=== PATIENT | male | born 1935 | race Caucasian/White ===

== ENCOUNTER → 2016-05-28 | Outpatient (CLI) | payer MEDICARE ==
[~2016-05-28] MED LIST: /ESCI20TA OR; /ESOM40CA OR; /WARF5TA OR; AMBI10TA OR; AMIT50TA2 OR; ENOX40SY; HYDR25TA6 OR; LEVO2TA OR; LIPI20TA OR; LISI10TA4 OR; NEUR300C; NEUR300C OR; TRAM50TA2 OR; VICO5TAB OR; ZANA4CAP OR
--- NOTE | 2016-05-28 15:27 | REP ---
MRI LUMBAR SPINE WITHOUT CONTRAST: 05/28/2016. Comparison: 03/29/2012 MRI, x-ray 03/22/2016. Clinical history: Lumbar spondylosis, evaluate for progressive spinal stenosis. Technique: Sagittal T1, T2 and STIR images with axial T1 and T2 sequences lumbar spine provided. Findings. Vertebral body heights and marrow signal normal from T12 through the sacrum. The disc spaces are narrowed from L1-2 through L5-S1 with loss of disc water at all levels and at least narrowing at L5-S1. Conus terminates at the upper aspect of L1. T11-12 and T12-L1 levels show no disc bulge or disc herniation and no spinal or foraminal stenosis. At L1-2, there is minimal disc bulge without spinal or foraminal stenosis. At L2-3, there is a left paracentral disc bulge, ligamentum flavum and facet hypertrophy. There is crowding of nerve roots and the AP canal diameter 8.3 mm. No foraminal nerve root compression. At L3-L4, broad-based disc bulge with fairly extensive ligamentum and facet hypertrophy, which in combination causes severe spinal stenosis and nerve root crowding. The AP canal diameter is only 6.6 mm. Appearance slightly progressive. Lateral recess stenosis is noted. No definite nerve root compression, but loss of perineural fat around the L3 nerves is demonstrated. Only mild progression centrally. At L4-L5, there is a broad-based diffuse disc bulge with a small extruded disc right paracentral. This is unchanged. Ligamentum and facet hypertrophic changes seen causing moderately severe central canal stenosis. AP canal diameter about 6.2 mm. The foramina show no nerve root compression, although loss of perineural fat demonstrated. At L5, S1, there is a diffuse disc bulge which does not abut or displace the S1 nerve roots. Cross-sectional area of the canal was adequate. Facet hypertrophic changes noted. The foramina show loss of perineural fat with some compression of the right L5 nerve root while the left nerve root does not show foraminal compression. Impression: 1. Multilevel lumbar spondylosis with stenosis, mildly progressive centrally at L3-4 due to combined factors and with moderately severe stenosis at L4-5, less at L2-3 and L5-S1. Only foraminal stenosis with nerve root compression is on the right at L5-S1. The other foramina show loss of perineural fat without nerve root compression. Signed by Lito Dykes MD 05/28/2016 04:48 P
== END ==
LOC: M RAD 12:45
PROVIDERS: ATTEND Orthopaedic Surgery
DX: M47.816 Spondylosis without myelopathy or radiculopathy, lumbar region (principal); M47.817 Spondylosis without myelopathy or radiculopathy, lumbosacral region

== ENCOUNTER → 2016-09-01 | Outpatient (REF) | payer MEDICARE ==
[2016-09-01 12:22] LABS: ALBUMIN 3.6 GM/DL (3.2-5.2); ALBUMIN/GLOBULIN RATIO 1.09 (1.00-1.93); ALKALINE PHOSPHATASE 114 U/L (45-117); ALT/SGPT 36 U/L (12-78); ANION GAP 8 MEQ/L (8-16); AST/SGOT 25 U/L (15-37); BILIRUBIN,TOTAL 0.3 MG/DL (0.2-1.0); BLOOD UREA NITROGEN 15 MG/DL (7-18); CALCIUM LEVEL 8.8 MG/DL (8.8-10.2); CARBON DIOXIDE LEVEL 31 MEQ/L (21-32); CHLORIDE LEVEL 100 MEQ/L (98-107); CHOLESTEROL LEVEL 191 MG/DL (<200); CREATININE FOR GFR 0.82 MG/DL (0.70-1.30); GLOMERULAR FILTRATION RATE > 60.0 (>42); GLUCOSE, FASTING 104 MG/DL (83-110); SODIUM LEVEL 139 MEQ/L (136-145); TOTAL PROTEIN 6.9 GM/DL (6.4-8.2); TRIGLYCERIDES LEVEL 101 MG/DL (<150)
== END ==
LOC: M SFHCPLAZ 09:56
PROVIDERS: ATTEND Internal Medicine
DX: I10 Essential (primary) hypertension (principal); R73.01 Impaired fasting glucose; E78.00 Pure hypercholesterolemia, unspecified

== ENCOUNTER → 2016-09-29 | Outpatient (REF) | payer MEDICARE ==
[2016-09-29 12:29] LABS: INR 1.76
[2016-10-01 00:06] LABS: Lyme Disease IgG/IgM Antibodie <0.91 ISR (0.00-0.90); Lyme Disease IgM Ab Quantitati <0.80 index (0.00-0.79)
== END ==
LOC: M LABDRAW1 11:15
PROVIDERS: ATTEND Internal Medicine
DX: Z51.81 Encounter for therapeutic drug level monitoring (principal); Z79.899 Other long term (current) drug therapy; Z86.711 Personal history of pulmonary embolism

== ENCOUNTER → 2016-12-04 | Outpatient (CLI) | payer MEDICARE ==
[~2016-12-04] MED LIST changes: +AMBI10TA PO; +AMIT50TA PO; +COUM1TAB17 PO; +COUM2.5T17 PO; +CYMB60CA3 PO; +FLON1SPR; +HYDR-3713 PO; +HYDR25TAB PO; +LEVO175T2 PO; +MULT1TAB10 PO; +NEUR300C PO; +OMEP20CA3 PO; +PERC5TAB12 PO; +SIMV40TA2 PO; +TEMA15CA2 PO
[2016-12-04 16:26] LABS: ANION GAP 7 MEQ/L (8-16); BLOOD UREA NITROGEN 12 MG/DL (7-18); CALCIUM LEVEL 8.6 MG/DL (8.8-10.2); CARBON DIOXIDE LEVEL 31 MEQ/L (21-32); CHLORIDE LEVEL 102 MEQ/L (98-107); CREATININE FOR GFR 0.87 MG/DL (0.70-1.30); GLOMERULAR FILTRATION RATE > 60.0 (>42); GLUCOSE, FASTING 119 MG/DL (83-110); POTASSIUM SERUM 4.1 MEQ/L (3.5-5.1); SODIUM LEVEL 140 MEQ/L (136-145)
--- NOTE | 2016-12-04 16:47 | REP ---
Chest two views HISTORY: Preop Comparison: 03/25/2016 Linear density is present in the the right middle lobe consistent with scar. The left lung is clear. The heart is normal in size. The pulmonary vasculature is normal in appearance. Degenerative change is present in the thoracic spine. IMPRESSION: No acute disease. Signed by Hardy Castillo MD 12/04/2016 04:39 P
--- NOTE | 2016-12-04 21:50 | ECGEPIP ---
Stationary ECG Study [facility] Test Date: 2016-12-04 Pat Name: ISABEL GREY Department: Room: - Gender: M [employer] Developer: YARA : 1935 Requested By: Dony Duff Order Number: [id number] Reading MD: Vitor Cline Measurements Intervals [place] Rate: 65 P: 29 MD: 209 QRS: 21 QRSD: 87 T: 29 QT: 382 QTc: 399 Interpretive Statements SINUS RHYTHM LAST TRACING ON 03/25/2016 AT 10:01:36, NO SIGNIFICANT CHANGES Electronically Signed On 12-04-2016 21:50:30 EDT by Vitor Cline
== END ==
LOC: M LAB 14:26
PROVIDERS: ATTEND Orthopaedic Surgery
DX: Z01.818 Encounter for other preprocedural examination (principal); M99.73 Connective tissue and disc stenosis of intervertebral foramina of lumbar region; M43.16 Spondylolisthesis, lumbar region

== ENCOUNTER 2016-12-18 10:04 | Inpatient (IN) | payer MEDICARE ==
--- NOTE | 2016-12-12 11:06 | HPE ---
DATE OF ADMISSION: 12/18/2016 CHIEF COMPLAINT: Back pain, pain down both lower extremities. ATTENDING PHYSICIAN: Dr. Jean HISTORY: This is a pleasant, 81-year-old male patient with progressively worsening back pain and pain down to his lower extremities. It effects his activities of daily living. Both legs are quite problematic. He has increased symptoms pain if he walks any distance. He has elected for surgery for his continued symptoms. He has failed to improve with conservative management to include activity modification, rest, physical therapy. He consented for a right unilateral laminectomy L3, L4-L5 with posterior fusion in situ. He has had a MRI consistent with spinal stenosis most significantly at 3-4, lesser degree at 4-5 with lateral stenosis to the right at 4-5. There is degenerative changes at that 2-3 and at 5-1. X-rays notable for degenerative changes diffusely throughout the lumbar spine with a very minimal spondylolisthesis at 4-5. MEDICAL OPTIMIZATION: Dr. Baker. ALLERGIES: PENICILLIN. CURRENT MEDICATIONS: - gabapentin 300 mg one tablet three times a day - Prilosec 40 mg one tablet once per day - Coumadin 2.5 adjusted dosing - levothyroxine 175 mcg one tablet once per day - Flonase nasal spray - Zocor 40 mg one tablet in the evening - amitriptyline 50 mg one tablet at bedtime - Vicodin as needed for pain - Ambien 15 mg one tablet at bedtime as needed for insomnia - hydrochlorothiazide 25 mg one tablet once per day He knows to stop his warfarin 3 days prior to surgery he will stop that, 5 days prior to surgery no aspirin or anti-inflammatories. SURGICAL HISTORY: Includes bilateral open median nerve decompression, left open rotator cuff repair of his shoulder, right knee scope. MEDICAL HISTORY: Include hypertension, spinal stenosis, bilateral leg symptoms, impaired fasting glucose, history of a pulmonary embolism (PE) in 2004 that is treated with long-term anticoagulants, hypothyroidism, elevated cholesterol, insomnia, and seasonal allergies. FAMILY HISTORY: Noncontributory. SOCIAL HISTORY: He does not smoke. He does not use alcohol. He continues to perform some work-related activities. REVIEW OF SYSTEMS: Denies fever or chills. Denies chest pain, shortness breath or cough. Denies difficulty breathing. Denies nausea or vomiting. Denies chest pain. Denies recent upper respiratory infection (URI) or urinary tract infection (UTI) symptoms. Notes persistent pain in the back and currently in both lower extremities about equal left and right. Denies changes in bowel or bladder habits. EXAMINATION: Today reveals a well-nourished, well-developed, alert male patient who walks with a slow gait. He does not use assistive devices. Straight leg raise testing is negative. Exam of the back reveals skin to be intact. No erythema, edema or ecchymosis. Deep tendon reflexes are absent in knees and ankles. Neck is supple without adenopathy or jugular venous distention (JVD). Lungs are clear to auscultation without rales or wheeze. Heart: Regular rate and rhythm. Abdomen: Bowel sounds are present. Height 68 inches, weight 233 pounds. Temperature 97.7. LABORATORY DATA: Glucose 119. BUN 12, creatinine 0.87. Sodium 140, potassium 4.1. Hemoglobin 13.2. Chest x-ray: No acute cardiopulmonary process noted. EKG: Sinus rhythm. IMPRESSION: Symptomatic spinal stenosis, spondylolisthesis and bilateral leg symptoms. PLAN: He has consented for a right unilateral laminectomy L3, L4 and L5 with posterior fusion in situ by Dr. Jean. MAGNOLIA
[~2016-12-18] VITALS: Ht 177.8 cm; Wt 104.3 kg
[~2016-12-18 10:04] MED LIST changes: +LIDOCAINE 2% INJ 100 MG/5 ML SDV (FOR ANES.) As Ordered ONE; +MIDAZOLAM INJ 2 MG/2 ML VIAL (J2250) As Ordered ONE; -PERC5TAB12 PO; +PROPOFOL 200 MG/20 ML VIAL As Ordered ONE; +ROCURONIUM BROMIDE 50 MG/5 ML VIAL/SYRINGE As Ordered ONE; +VANCOMYCIN HCL 1,000 MG, VIAL MATE ADAPTER 1 EACH in D5W 250 ML IV ONE; +fentaNYL 250 MCG/5 ML INJECTION (J3010) As Ordered ONE
[2016-12-18] MEDS ORDERED: LR 1,000 ML IV SCH ×2 (10:15→19:15)
[2016-12-18] MEDS ORDERED: VANCOMYCIN 1000 MG/20 ML VIAL (J3370) As Ordered ONE (10:47)
[2016-12-18 10:49] LABS: INR 1.07
[2016-12-18] MEDS ORDERED: VANCOMYCIN HCL 1,000 MG, VIAL MATE ADAPTER 1 EACH in D5W 250 ML IV ONE (11:00)
[2016-12-18] MEDS ORDERED: PERCOCET 5MG/325MG TAB As Ordered ONE (12:15)
[2016-12-18] MEDS ORDERED: PERCOCET 5MG/325MG TAB PO ONE (13:00)
[2016-12-18] MEDS ORDERED: THROMBIN SOLN 20,000 UNITS KIT As Ordered ONE (13:32)
[2016-12-18] MEDS ORDERED: BUPIVACAINE/EPIN 0.25% 30 ML VIAL As Ordered ONE (13:32)
[2016-12-18] MEDS ORDERED: VANCOMYCIN HCL 500 MG/10 ML VIAL (J3370) As Ordered ONE (13:32)
[2016-12-18] MEDS ORDERED: BACITRACIN PWD 50,000 UNITS VIAL As Ordered ONE (13:32)
[2016-12-18] MEDS ORDERED: ROCURONIUM BROMIDE 50 MG/5 ML VIAL/SYRINGE As Ordered ONE (14:52)
[2016-12-18] MEDS ORDERED: MORPHINE 10 MG/ML 1ML VIAL As Ordered ONE (15:24)
[2016-12-18] MEDS ORDERED: NEOSTIGMINE 1MG/ML 5 ML SYRINGE (J2710) As Ordered ONE (15:27)
[2016-12-18] MEDS ORDERED: GLYCOPYRROLATE INJ 0.2 MG/ML 2 ML VIAL As Ordered ONE (15:27)
[2016-12-18] MEDS ORDERED: ONDANSETRON 4MG/2ML VIAL (J2405) As Ordered ONE (15:28)
--- NOTE | 2016-12-18 15:36 | REP ---
Lumbar spine: Single portable view. History: Spinal stenosis. Comparison radiographs March 22, 2016. Findings: A lateral portable view of the lumbar spine is presented time-stamped 03:26 p.m. This view shows a metallic intraoperative probe projecting on the dorsal aspect of the spinal canal at the level opposite the L3-4 disc. There is diffuse degenerative disc disease. Signed by Dimitri Newell MD 12/18/2016 04:26 P
[2016-12-18] MEDS ORDERED: MORPHINE 2 MG/ML 1ML SYRINGE As Ordered ONE ×2 (19:11→20:16)
[2016-12-18] MEDS ORDERED: ONDANSETRON 4MG/2ML VIAL (J2405) IV PRN ×2 (19:15→20:15)
[2016-12-18] MEDS ORDERED: fentaNYL 100 MCG/2 ML INJECTION (J3010) IV PRN (19:15)
[2016-12-18] MEDS: MORPHINE 2 MG/ML 1ML SYRINGE IV PRN ×5 (19:15→20:19)
[2016-12-18] MEDS ORDERED: MORPHINE 4 MG/ML 1ML SYRINGE IV PRN (20:15)
[2016-12-18] MEDS: PERCOCET 5MG/325MG TAB PO PRN (20:17)
[2016-12-18] MEDS ORDERED: ACETAMINOPHEN TAB 650MG DOSE (2X325MG) PO PRN (20:30)
[2016-12-18] MEDS ORDERED: MORPHINE 2 MG/ML 1ML SYRINGE IV PRN (20:30)
[2016-12-18] MEDS ORDERED: TEMAZEPAM 15 MG CAP PO PRN (20:30)
[2016-12-18] MEDS ORDERED: FLUTICASONE PROP 0.05% NASAL SPRAY 16 GM (FLONASE) PRN (20:45)
[2016-12-18 21:00] VITALS: BP 118/67
[2016-12-18] MEDS ORDERED: GABAPENTIN 400 MG CAP PO SCH (21:00)
[2016-12-18] MEDS ORDERED: D5W/0.45% SODIUM CHLORIDE 1,000 ML IV SCH (21:00)
[2016-12-18] MEDS ORDERED: AMITRIPTYLINE 50 MG TAB PO SCH (21:00)
[2016-12-18 21:30] VITALS: BP 130/63
[2016-12-18] MEDS: GABAPENTIN 300 MG CAP PO SCH (21:47)
[2016-12-18] MEDS: DOCUSATE SODIUM 100 MG CAP PO SCH (21:47)
[2016-12-18] MEDS: AMITRIPTYLINE 50 MG TAB PO SCH (21:47)
--- NOTE | 2016-12-18 21:56 | CR ---
DATE OF CONSULTATION: 12/18/2016 REASON FOR CONSULTATION: Medical management. CONSULTATION REPORT FOR: Dony Jean MD PRIMARY CARE PROVIDER (PCP): Jomar Baker MD HISTORY OF PRESENT ILLNESS: The patient is a 81-year-old man who has known spinal stenosis and back pain with lower extremity symptoms secondary to this. He did undergo a risk stratification preoperatively by Dr. Jomar Baker. He had been given a trial of rest, activity modification, and physical therapy without improvement in his symptoms and, as such, he has been taken for elective laminectomy with posterior fusion. Today, he is postoperative day #0. He is seen and examined in the postanesthesia care unit (PACU). He denies any pain at this time. He is comfortable. He denies chest pain, fevers, chills, nausea, vomiting, or diarrhea. PAST MEDICAL HISTORY: 1. Hypertension. 2. Pulmonary embolism (PE) in 2008, on Coumadin since. 3. Hypothyroidism. 4. Insomnia. 5. Dyslipidemia. 6. Gastroesophageal reflux disease. HOME MEDICATIONS: - gabapentin 900 mg three times a day - Prilosec 40 mg daily - Coumadin 2.5 mg daily, 5 mg on - levothyroxine 175 mcg daily - Flonase - Zocor 40 mg daily - amitriptyline 50 mg nightly - temazepam 15 mg nightly - hydrochlorothiazide 25 mg daily SOCIAL HISTORY: He denies alcohol, tobacco, or illicit drug use. ALLERGIES: PENICILLIN - rash. SURGICAL HISTORY: Bilateral medial nerve decompression surgery, left open rotator cuff shoulder repair, right knee scope, right eye cataract extraction, right neck mass excision. FAMILY HISTORY: Noncontributory. REVIEW OF SYSTEMS: Ten point completed and negative other than history of present illness (HPI). PHYSICAL EXAMINATION: VITAL SIGNS: Temperature 96.9, pulse 71, respiratory rate 16, blood pressure 135/65, oxygen saturation 100% on two liters nasal cannula. GENERAL: He is a very pleasant, obese, elderly, man laying on his right side. He is examined in the PACU. He does not appear to be in any acute distress. HEENT: Cranial nerves II-XII are grossly intact. He has a very large neck. Moist mucous membranes. CARDIOVASCULAR EXAM: S1, S2, regular. RESPIRATORY EXAM: Clear. ABDOMINAL EXAM: Obese. The dressing over his lumbar region is clean, dry, and intact. EXTREMITIES: No clubbing, cyanosis, or edema. LABORATORY STUDIES: His INR from today is 1.0. IMAGING: He had a lumbar spine x-ray from this afternoon that revealed metallic intraoperative probe projecting on the dorsal aspect of the spinal canal at the level opposite the L3-4 disc. Diffuse degenerative disc disease. ASSESSMENT AND PLAN: This is a 81-year-old man postoperative day #0 for a laminectomy for spinal stenosis. 1. Postoperative day #0 for laminectomy. Deep venous thrombosis (DVT) prophylaxis, physical therapy, postsurgical care as per orthopedic surgery. 2. History of pulmonary embolus (PE). He is normally on anticoagulation. His Coumadin has been held. His INR is subtherapeutic. Recommend restarting Coumadin at his home dose when okay with orthopaedics after lumbar surgery. 3. Hypertension. We will hold his hydrochlorothiazide today as he is receiving anesthesia and significant pain medication. Consider resuming as needed tomorrow. 4. Insomnia. We are holding his temazepam this evening and will order for nightly as needed starting tomorrow evening. 5. Chronic pain. Pain medication as per orthopedic surgery. He is on amitriptyline and gabapentin chronically. These are being continued by orthopedic surgery. 6. Gastroesophageal reflux disease. Continue with Prilosec. 7. Hypothyroidism. Continue with levothyroxine. 8. Seasonal allergies. Continue with Flonase. 9. Dyslipidemia. Continue with Zocor. 10. Deep venous thrombosis (DVT) prophylaxis. As per orthopedic surgery. Thank you for involving us in this interesting patient's case. We will continue to follow along with you. The patient will be followed by Dr. Villarreal on the hospitalist service. Please call with any specific questions.
[2016-12-18 22:30] VITALS: BP 107/58
[2016-12-18 23:30] VITALS: BP 110/60
[2016-12-19] MEDS ORDERED: CALCIUM CARBONATE 500 MG CHEW U/D PO PRN (01:00)
[2016-12-19 02:00] VITALS: BP 109/57
[2016-12-19] MEDS ORDERED: VANCOMYCIN HCL 1,000 MG, VIAL MATE ADAPTER 1 EACH in D5W 250 ML IV ONE (05:00)
[2016-12-19] MEDS: LEVOTHYROXINE 75MCG TABLET (0.075MG) PO SCH (05:46)
[2016-12-19] MEDS: LEVOTHYROXINE 100MCG TABLET (0.1MG) PO SCH (05:46)
[2016-12-19 06:00] VITALS: BP 140/60
[2016-12-19] MEDS: PERCOCET 5MG/325MG TAB PO PRN ×4 (06:11→18:53)
[2016-12-19 06:49] LABS: ANION GAP 7 MEQ/L (8-16); BLOOD UREA NITROGEN 10 MG/DL (7-18); CALCIUM LEVEL 8.1 MG/DL (8.8-10.2); CARBON DIOXIDE LEVEL 30 MEQ/L (21-32); CHLORIDE LEVEL 105 MEQ/L (98-107); CREATININE FOR GFR 0.76 MG/DL (0.70-1.30); GLOMERULAR FILTRATION RATE > 60.0 (>42); GLUCOSE, FASTING 103 MG/DL (83-110); MAGNESIUM LEVEL 1.7 MG/DL (1.8-2.4); POTASSIUM SERUM 4.1 MEQ/L (3.5-5.1); SODIUM LEVEL 142 MEQ/L (136-145)
[2016-12-19] MEDS: DOCUSATE SODIUM 100 MG CAP PO SCH ×2 (08:14→21:10)
[2016-12-19] MEDS: MULTIVITAMINS/MINERALS THERAP 1 TAB PO SCH (08:14)
[2016-12-19] MEDS: GABAPENTIN 300 MG CAP PO SCH ×3 (08:14→21:10)
[2016-12-19] MEDS: OMEPRAZOLE 20 MG CAP PO SCH (08:14)
[2016-12-19] MEDS: hydroCHLOROthiazide 25 MG TAB PO SCH (08:15)
[2016-12-19] MEDS: SIMVASTATIN 40 MG TAB PO SCH (08:15)
[2016-12-19] MEDS ORDERED: MOM 30ML SUSPENSION UDC PO PRN (08:15)
[2016-12-19] MEDS ORDERED: MAG SULF 1GM/100ML (MAG RUN) 1 GM in APPROPRIATE DILUENT 1 EA IV ONE (08:15)
[2016-12-19] MEDS: DULoxetine 30 MG CAP (CYMBALTA) PO SCH (08:15)
[2016-12-19] MEDS ORDERED: OMEPRAZOLE 20 MG CAP PO SCH (09:00)
[2016-12-19] MEDS ORDERED: SENOKOT S TAB PO SCH (09:00)
[2016-12-19] MEDS ORDERED: SIMVASTATIN 40 MG TAB PO SCH (09:00)
[2016-12-19] MEDS: MAGNESIUM OXIDE 400 MG TAB (MAG-OX) PO SCH ×2 (09:48→21:10)
[2016-12-19] MEDS: MIRALAX *UNIT DOSE* 17GM PACKET PO SCH (09:48)
--- NOTE | 2016-12-19 10:12 | IPNPDOC ---
Subjective Date Seen The patient was seen on 12/19/16. Subjective Chief Complaint/HPI The patient is a 81-year-old male admitted with a reason for visit of Spinal Stenosis Lumbar. Events since last encounter patient complains of some soreness of the back at the site or surgery but not to bad. no nausea or vomiting , no chest pain or sob , no abdominal pain , nausea or vomiting or diarrhea. Objective Physical Examination General Exam: Positive: Alert, Cooperative, No Acute Distress Eye Exam: Positive: PERRLA, Conjunctiva & lids normal, EOMI, Negative: Sclera icteric ENT Exam: Positive: Atraumatic, Mucous membr. moist/pink, Pharynx Normal Neck Exam: Positive: Supple, Negative: JVD, thyromegaly Chest Exam: Positive: Clear to auscultation, Normal air movement Heart Exam: Positive: Rate Normal, Regular Rhythm, Normal S1, Normal S2, Negative: Murmurs, Rubs Abdomen Exam: Positive: Normal bowel sounds, Soft, Negative: Tenderness, Hepatospenomegaly Extremity Exam: Positive: Normal pulses, Negative: Clubbing, Cyanosis, Edema Skin Exam: Positive: Nl turgor and temperature, Negative: Rash, Breakdown Assessment /Plan Problems (1) Spinal stenosis Problem Text: s/p right unilateral laminectomy L3, L4-L5 with posterior fusion in situ on 12/18 surgery was uneventful. pain control and dvt prophylasix as per orthopedics. (2) History of pulmonary embolism Status: Chronic Problem Text: Had PE in 2008 continue to hold coumadin once cleared by surgery will start heparin gtt with coumadin bridging. (3) Obesity Status: Chronic (4) GERD (gastroesophageal reflux disease) Status: Chronic (5) Hyperlipidemia Status: Chronic (6) Hypertension Status: Chronic (7) Hypothyroid Status: Chronic Plan/VTE VTE Prophylaxis Ordered?: Yes VS, I&O, 24H, Fishbone Vital Signs/I&O Vital Signs Date Time Temp Pulse Resp B/P (MAP) Pulse Ox O2 Delivery O2 Flow Rate FiO2 12/19/16 09:49 18 12/19/16 06:41 Nasal Cannula 2.0 12/19/16 06:11 98 12/19/16 06:00 99.9 89 140/60 (86) I&O- Last 24 Hours up to 6 AM 12/19/16 05:59 Intake Total 2470 ml Output Total 600 ml Balance 1870 ml Laboratory Data 24H LABS Laboratory Tests 2 12/18/16 10:20: Prothrombin Time 14.0, Prothromb Time International Ratio 1.07 12/19/16 06:16: Anion Gap 7L, Glomerular Filtration Rate > 60.0, Blood Urea Nitrogen 10, Creatinine 0.76, Sodium Level 142, Potassium Level 4.1, Chloride Level 105, Carbon Dioxide Level 30, Calcium Level 8.1L, Magnesium Level 1.7L CBC/BMP Laboratory Tests 12/19/16 06:16 Calcium Level 8.1 L JACLYN SAMANIEGO MD Dec 19, 2016 10:12
[2016-12-19 14:00] VITALS: BP 147/66
[2016-12-19] MEDS ORDERED: TEMAZEPAM 15 MG CAP PO PRN (20:45)
[2016-12-19] MEDS: AMITRIPTYLINE 50 MG TAB PO SCH (21:10)
[2016-12-19 22:00] VITALS: BP 131/87
[2016-12-20] MEDS: PERCOCET 5MG/325MG TAB PO PRN ×3 (05:24→20:24)
[2016-12-20] MEDS: LEVOTHYROXINE 75MCG TABLET (0.075MG) PO SCH (05:32)
[2016-12-20] MEDS: LEVOTHYROXINE 100MCG TABLET (0.1MG) PO SCH (05:32)
[2016-12-20 06:00] VITALS: BP 141/66
[2016-12-20] MEDS: CYCLOBENZAPRINE 10 MG TAB PO PRN (08:14)
[2016-12-20 08:34] VITALS: BP 114/51
[2016-12-20] MEDS: MIRALAX *UNIT DOSE* 17GM PACKET PO SCH (09:16)
[2016-12-20] MEDS: OMEPRAZOLE 20 MG CAP PO SCH (09:16)
[2016-12-20] MEDS: SIMVASTATIN 40 MG TAB PO SCH (09:17)
[2016-12-20] MEDS: DULoxetine 30 MG CAP (CYMBALTA) PO SCH (09:17)
[2016-12-20] MEDS: GABAPENTIN 300 MG CAP PO SCH ×3 (09:17→20:23)
[2016-12-20] MEDS: hydroCHLOROthiazide 25 MG TAB PO SCH (09:17)
[2016-12-20] MEDS: MAGNESIUM OXIDE 400 MG TAB (MAG-OX) PO SCH ×2 (09:17→20:25)
[2016-12-20] MEDS: DOCUSATE SODIUM 100 MG CAP PO SCH ×2 (09:18→20:25)
[2016-12-20] MEDS: MULTIVITAMINS/MINERALS THERAP 1 TAB PO SCH (09:18)
--- NOTE | 2016-12-20 10:06 | IPNPDOC ---
Subjective Date Seen The patient was seen on 12/20/16. Subjective Chief Complaint/HPI The patient is a 81-year-old male admitted with a reason for visit of Spinal Stenosis Lumbar. Events since last encounter no complaints this morning, no nausea or vomiting, no chest pain , no sob, no cough or phlegm Objective Physical Examination General Exam: Positive: Alert, Cooperative, No Acute Distress Eye Exam: Positive: PERRLA, Conjunctiva & lids normal, EOMI, Negative: Sclera icteric ENT Exam: Positive: Atraumatic, Mucous membr. moist/pink, Pharynx Normal Neck Exam: Positive: Supple, Negative: JVD, thyromegaly Chest Exam: Positive: Clear to auscultation, Normal air movement Heart Exam: Positive: Rate Normal, Regular Rhythm, Normal S1, Normal S2, Negative: Murmurs, Rubs Abdomen Exam: Positive: Normal bowel sounds, Soft, Negative: Tenderness, Hepatospenomegaly Extremity Exam: Positive: Normal pulses, Negative: Clubbing, Cyanosis, Edema Skin Exam: Positive: Nl turgor and temperature, Negative: Rash, Breakdown Assessment /Plan Problems (1) Spinal stenosis Problem Text: s/p right unilateral laminectomy L3, L4-L5 with posterior fusion in situ on 12/18 surgery was uneventful. pain control and dvt prophylasix as per orthopedics. (2) History of pulmonary embolism Status: Chronic Problem Text: Had PE in 2008 continue to hold coumadin once cleared by surgery will start heparin gtt with coumadin bridging. will possibly start on 12/22/16 (3) Obesity Status: Chronic (4) GERD (gastroesophageal reflux disease) Status: Chronic (5) Hyperlipidemia Status: Chronic (6) Hypertension Status: Chronic (7) Hypothyroid Status: Chronic Plan/VTE VTE Prophylaxis Ordered?: Yes VS, I&O, 24H, Fishbone Vital Signs/I&O Vital Signs Date Time Temp Pulse Resp B/P (MAP) Pulse Ox O2 Delivery O2 Flow Rate FiO2 12/20/16 09:35 Room Air 12/20/16 08:34 98.5 84 18 114/51 (72) 95 12/19/16 14:00 2.0 I&O- Last 24 Hours up to 6 AM 12/20/16 06:00 Intake Total 1680 ml Output Total 630 ml Balance 1050 ml Laboratory Data 24H LABS Laboratory Tests 2 12/20/16 06:09: Magnesium Level 1.8 JACLYN SAMANIEGO MD Dec 20, 2016 10:06
[2016-12-20 14:00] VITALS: BP 139/81
[2016-12-20] MEDS: AMITRIPTYLINE 50 MG TAB PO SCH (20:25)
[2016-12-20 22:00] VITALS: BP 146/66
[2016-12-21] MEDS: LEVOTHYROXINE 75MCG TABLET (0.075MG) PO SCH (05:30)
[2016-12-21] MEDS: LEVOTHYROXINE 100MCG TABLET (0.1MG) PO SCH (05:30)
[2016-12-21] MEDS: PERCOCET 5MG/325MG TAB PO PRN ×3 (05:30→18:45)
[2016-12-21 06:00] VITALS: BP 137/65
[2016-12-21] MEDS ORDERED: MAGNESIUM CITRATE 300 ML BTL PO ONE (08:15)
--- NOTE | 2016-12-21 10:25 | IPNPDOC ---
Subjective Date Seen The patient was seen on 12/21/16. Subjective Chief Complaint/HPI The patient is a 81-year-old male admitted with a reason for visit of Spinal Stenosis Lumbar. Events since last encounter no complaints this morning, Objective Physical Examination General Exam: Positive: Alert, Cooperative, No Acute Distress Eye Exam: Positive: PERRLA, Conjunctiva & lids normal, EOMI, Negative: Sclera icteric ENT Exam: Positive: Atraumatic, Mucous membr. moist/pink, Pharynx Normal Neck Exam: Positive: Supple, Negative: JVD, thyromegaly Chest Exam: Positive: Clear to auscultation, Normal air movement Heart Exam: Positive: Rate Normal, Regular Rhythm, Normal S1, Normal S2, Negative: Murmurs, Rubs Abdomen Exam: Positive: Normal bowel sounds, Soft, Negative: Tenderness, Hepatospenomegaly Extremity Exam: Positive: Normal pulses, Negative: Clubbing, Cyanosis, Edema Skin Exam: Positive: Nl turgor and temperature, Negative: Rash, Breakdown Assessment /Plan Problems (1) Spinal stenosis Problem Text: s/p right unilateral laminectomy L3, L4-L5 with posterior fusion in situ on 12/18 surgery was uneventful. pain control and dvt prophylasix as per orthopedics. (2) History of pulmonary embolism Status: Chronic Problem Text: Had PE in 2008 continue to hold coumadin once cleared by surgery will start heparin gtt with coumadin bridging. will possibly start on 12/22/16 (3) Obesity Status: Chronic (4) GERD (gastroesophageal reflux disease) Status: Chronic (5) Hyperlipidemia Status: Chronic (6) Hypertension Status: Chronic (7) Hypothyroid Status: Chronic Plan/VTE VTE Prophylaxis Ordered?: Yes VS, I&O, 24H, Fishbone Vital Signs/I&O Vital Signs Date Time Temp Pulse Resp B/P (MAP) Pulse Ox O2 Delivery O2 Flow Rate FiO2 12/21/16 06:23 16 12/21/16 06:00 97.9 76 137/65 (89) 98 Room Air 12/19/16 14:00 2.0 I&O- Last 24 Hours up to 6 AM 12/21/16 05:59 Intake Total 1440 ml Output Total 300 ml Balance 1140 ml JACLYN SAMANIEGO MD Dec 21, 2016 10:25
[2016-12-21] MEDS: MIRALAX *UNIT DOSE* 17GM PACKET PO SCH (10:53)
[2016-12-21] MEDS: OMEPRAZOLE 20 MG CAP PO SCH (10:54)
[2016-12-21] MEDS: SIMVASTATIN 40 MG TAB PO SCH (10:54)
[2016-12-21] MEDS: CYCLOBENZAPRINE 10 MG TAB PO PRN (10:54)
[2016-12-21] MEDS: DOCUSATE SODIUM 100 MG CAP PO SCH ×2 (10:54→20:47)
[2016-12-21] MEDS: hydroCHLOROthiazide 25 MG TAB PO SCH (10:54)
[2016-12-21] MEDS: MULTIVITAMINS/MINERALS THERAP 1 TAB PO SCH (10:54)
[2016-12-21] MEDS: MAGNESIUM OXIDE 400 MG TAB (MAG-OX) PO SCH ×2 (10:55→20:47)
[2016-12-21] MEDS: DULoxetine 30 MG CAP (CYMBALTA) PO SCH (10:55)
[2016-12-21] MEDS: GABAPENTIN 300 MG CAP PO SCH ×3 (10:55→20:47)
[2016-12-21 14:00] VITALS: BP 122/70
--- NOTE | 2016-12-21 14:59 | RO ---
DATE OF PROCEDURE: 12/19/2016 PREPROCEDURE DIAGNOSES: Lumbar spinal stenosis with facet arthropathy and right lower extremity, more than left lower extremity radiculopathy. POSTOPERATIVE DIAGNOSES: Lumbar spinal stenosis with facet arthropathy and right lower extremity, more than left lower extremity radiculopathy. PROCEDURE PERFORMED: Right L3 unilateral laminectomy for decompression of the thecal sac and nerve roots, additional level L4, additional level L5, arthrodesis/intertransverse posterior fusion in situ of L3-4 and L4-5, harvest and placement of iliac crest bone graft for spine surgery. Also utilized was collection and placement of local autograft for spine surgery and donor allograft for spine surgery. SURGEON: Dony Jean MD AUTO DRIVER: Daryl Lund PA-C. ESTIMATED BLOOD LOSS: 450 mL, replaced crystalloid. COMPLICATIONS: No intraoperative complications. INDICATIONS: Progressive discomfort radiating into the leg and back pain. MRI evidence of severe spinal stenosis with facet arthropathy. Consent reviewed in detail with the patient, including horacio discussion of the pathology involved, procedure proposed, alternatives, including doing nothing and risks, including, but not limited to pain, failure, infection, bleeding blood loss, incomplete relief of symptoms, need for additional surgery, nerve injury, , blood clots and other issues. The patient agrees to proceed with surgery. DESCRIPTION OF PROCEDURE: Identified in the holding area. Site and side verified. Brought to the operating room. General endotracheal anesthesia was administered. He was positioned on the Singh frame for exposure of the lumbar spine. Once I and the seamer were comfortable with the patient's positioning on the Singh frame, he was sterilely prepped and draped in the usual fashion. Next, we began the surgical procedure. For most of the surgical procedure, I was stationed on the right side of the patient wearing loupe magnification and a head lamp; however, I did alternate sides. With the decompression portion of the procedure, I did utilize the operating microscope. Mr. Lund initially stood on the patient's left side. Next, the incision was outlined with a marking pen, infiltrated with 0.25% Marcaine with epinephrine and then made with the #10 blade knife. The incision, based on palpation of the patient's iliac crest. Dissection continued down the posterior lumbar fascia. Mr. Donahue seemed to have a significant component of his body habitus concentrated in the soft tissue superficial to the muscle layer on the lumbar spine. The lumbar fascia was encountered and I reflected posterior lumbar fascia off the spinous processes of L3, L4 and L5 to allow exposure of the L3, L4 and L5 levels. Next, I drilled a divot into the lamina of the L3 level and placed a Hoang-Oswald there and then we obtained a cross-table lateral x-ray to verify appropriate levels. Next, once this was accomplished, we continued dissection. We also utilized Carly retractors to dissect over the transverse processes of L3, L4 and L5 on the patient's right side. We also accomplished the dissection on the left side over the facet complexes but did not disturb all the paraspinals on that left side. Next, at this stage, my loupe magnification headlamp was removed and the operating microscope was brought in for additional portions of the procedure. Leksell was utilized to remove some portions of the hypertrophied facet osteophytes, as well as the posterior lamina. These fragments were retained for bone graft, and we all see utilized the Lukens trap on one of our suctions to evacuate bone burring fragments. These were retained and used as bone graft. Next, the high-speed bur was utilized to implement the right unilateral laminectomy at L4. This extended superiorly through L3, undercut the spinous process of L3, undercut the spinous process of L4, and undercut the spinous process of L5 so that there was a significant midline decompression from the bony perspective. This also allowed exposure of the ligamentum flavum across the midline and I did utilize at that point curved curettes and Kerrisons to remove ligamentum flavum, which seemed to be somewhat hemosiderin stained. The ligamentum flavum was clearly impinging quite significantly on the thecal sac at L3, L4 level, as well as that L4, L5 level. I particularly paid attention to the right facet at L4, L5 where there had been some facet hypertrophy impinging on the traversing nerve root and this was cleared. I did reach over the horizon at the L3, L4 level, as well as the L4, L5 level with #2 Kerrisons, as well as curettes to clear the lateral recess and decompress the lateral recess and traversing nerves on that side. Next, irrigation was accomplished. Hemostasis was controlled with bipolar cautery, as well as thrombin Gelfoam. Next, once the decompression was adequately accomplished, we then turned our attention to the patient's left iliac crest from which we obtained morselized autograft. This was through a separate fascial incision and this was irrigated and closed over dry Gelfoam. Next, once this was accomplished, we decorticated the transverse processes at L3, L4, L5 in the right and decorticated the facet complexes on the left side and interlaminar spaces. Next, we placed iliac crest graft between L3, L4 and L5 over transverse processes and again the facet complexes, as well as the local graft, which was bur millings mixed with demineralized bone matrix putty and allograft. Next, bone graft was placed in the contralateral side over the facet complexes in the interlaminar space. This was all done after irrigation. No active bleeding was appreciated, but the patient had a significant mild venous ooze and serous drainage through the procedure so therefore I did closed over a #7 flat drain. Deep dermis was approximated with interrupted stitch and nylon utilized on skin. Dressings applied. The patient moved to the hospital bed in the supine position, extubated, moved to the recovery room in good condition. For further details, please refer to medical record. Please note, Mr. Lund was present and participated in the entirety case, as did Jayy. Please note the decompression was accomplished using the operating microscope. Mr. Lund looked through the oculars on the left side and Jayy on the right.
[2016-12-21] MEDS: AMITRIPTYLINE 50 MG TAB PO SCH (20:47)
[2016-12-21 22:00] VITALS: BP 132/60
[2016-12-22] MEDS: LEVOTHYROXINE 75MCG TABLET (0.075MG) PO SCH (05:46)
[2016-12-22] MEDS: LEVOTHYROXINE 100MCG TABLET (0.1MG) PO SCH (05:46)
[2016-12-22 06:00] VITALS: BP 144/67
[2016-12-22 06:54] LABS: ANION GAP 5 MEQ/L (8-16); BLOOD UREA NITROGEN 13 MG/DL (7-18); CALCIUM LEVEL 8.8 MG/DL (8.8-10.2); CARBON DIOXIDE LEVEL 35 MEQ/L (21-32); CHLORIDE LEVEL 96 MEQ/L (98-107); CREATININE FOR GFR 0.71 MG/DL (0.70-1.30); GLOMERULAR FILTRATION RATE > 60.0 (>42); GLUCOSE, FASTING 113 MG/DL (83-110); POTASSIUM SERUM 3.5 MEQ/L (3.5-5.1); SODIUM LEVEL 136 MEQ/L (136-145)
[2016-12-22 06:57] LABS: BASO % 0.2 % (0.0-1.0); EOS # 0.2 K/mm3 (0.0-0.50); EOS % 1.9 % (0.0-3.0); INR 1.02; LARGE UNSTAINED CELL # 0.3 K/mm3 (0.0-0.4); LARGE UNSTAINED CELL % 4.1 % (0.0-4.0); LYMPH % 12.9 % (24.0-44.0); MEAN CORPUSCULAR HEMOGLOBIN 31.8 pg (27.0-33.0); MEAN CORPUSCULAR HGB CONC 35.3 g/dl (32.0-36.5); MEAN CORPUSCULAR VOLUME 90.1 fl (80.0-96.0); MONO # 0.5 K/mm3 (0.0-0.8); MONO % 6.5 % (0.0-5.0); NEUTROPHILS # 5.7 K/mm3 (1.8-7.7); NEUTROPHILS % 74.4 % (36.0-66.0); PLATELET COUNT, AUTOMATED 243 k/mm3 (150-450); RED CELL DISTRIBUTION WIDTH 12.8 % (11.5-14.5); WHITE BLOOD COUNT 7.6 K/mm3 (4.0-10.0)
[2016-12-22] MEDS: MIRALAX *UNIT DOSE* 17GM PACKET PO SCH (09:00)
[2016-12-22] MEDS: MAGNESIUM OXIDE 400 MG TAB (MAG-OX) PO SCH ×2 (09:54→21:19)
[2016-12-22] MEDS: DOCUSATE SODIUM 100 MG CAP PO SCH ×2 (09:54→21:19)
[2016-12-22] MEDS: GABAPENTIN 300 MG CAP PO SCH ×3 (09:54→21:19)
[2016-12-22] MEDS: OMEPRAZOLE 20 MG CAP PO SCH (09:54)
[2016-12-22] MEDS: hydroCHLOROthiazide 25 MG TAB PO SCH (09:54)
[2016-12-22] MEDS: DULoxetine 30 MG CAP (CYMBALTA) PO SCH (09:54)
[2016-12-22] MEDS: SIMVASTATIN 40 MG TAB PO SCH (09:54)
[2016-12-22] MEDS: MULTIVITAMINS/MINERALS THERAP 1 TAB PO SCH (09:54)
[2016-12-22] MEDS: PERCOCET 5MG/325MG TAB PO PRN ×2 (09:55→17:48)
[2016-12-22] MEDS: HEPARIN DRIP 25,000 UNITS in APPROPRIATE DILUENT 1 EA IV SCH (10:27)
--- NOTE | 2016-12-22 11:46 | IPNPDOC ---
Subjective Date Seen The patient was seen on 12/22/16. Subjective Chief Complaint/HPI The patient is a 81-year-old male admitted with a reason for visit of Spinal Stenosis Lumbar. Events since last encounter no complaints this morning . will start heparin and coumadin Objective Physical Examination General Exam: Positive: Alert, Cooperative, No Acute Distress Eye Exam: Positive: PERRLA, Conjunctiva & lids normal, EOMI, Negative: Sclera icteric ENT Exam: Positive: Atraumatic, Mucous membr. moist/pink, Pharynx Normal Neck Exam: Positive: Supple, Negative: JVD, thyromegaly Chest Exam: Positive: Clear to auscultation, Normal air movement Heart Exam: Positive: Rate Normal, Regular Rhythm, Normal S1, Normal S2, Negative: Murmurs, Rubs Abdomen Exam: Positive: Normal bowel sounds, Soft, Negative: Tenderness, Hepatospenomegaly Extremity Exam: Positive: Normal pulses, Negative: Clubbing, Cyanosis, Edema Skin Exam: Positive: Nl turgor and temperature, Negative: Rash, Breakdown Assessment /Plan Problems (1) Spinal stenosis Problem Text: s/p right unilateral laminectomy L3, L4-L5 with posterior fusion in situ on 12/18 surgery was uneventful. pain control and dvt prophylasix as per orthopedics. (2) History of pulmonary embolism Status: Chronic Problem Text: Had PE in 2008 , Had factor V leiden heterozygous. will start heparin gtt with coumadin bridging will try to keep PTT 1.5 to 2 times normal that is between 55 to 70 (3) Obesity Status: Chronic (4) GERD (gastroesophageal reflux disease) Status: Chronic (5) Hyperlipidemia Status: Chronic (6) Hypertension Status: Chronic (7) Hypothyroid Status: Chronic Plan/VTE VTE Prophylaxis Ordered?: Yes VS, I&O, 24H, Fishbone Vital Signs/I&O Vital Signs Date Time Temp Pulse Resp B/P (MAP) Pulse Ox O2 Delivery O2 Flow Rate FiO2 12/22/16 10:25 16 12/22/16 09:58 Room Air 12/22/16 06:00 99.1 79 144/67 (92) 95 12/19/16 14:00 2.0 I&O- Last 24 Hours up to 6 AM 12/22/16 06:00 Intake Total 1340 ml Output Total 550 ml Balance 790 ml Laboratory Data 24H LABS Laboratory Tests 2 12/22/16 06:25: White Blood Count 7.6, Red Blood Count 2.99L, Hemoglobin 9.5L, Hematocrit 27.0L , Mean Corpuscular Volume 90.1, Mean Corpuscular Hemoglobin 31.8, Mean Corpuscular Hemoglobin Concent 35.3, Red Cell Distribution Width 12.8, Platelet Count 243, Neutrophils (%) (Auto) 74.4H, Lymphocytes (%) (Auto) 12.9L, Monocytes (%) (Auto) 6.5H, Eosinophils (%) (Auto) 1.9, Basophils (%) (Auto) 0.2 , Neutrophils # (Auto) 5.7, Lymphocytes # (Auto) 1.0L, Monocytes # (Auto) 0.5, Eosinophils # (Auto) 0.2, Basophils # (Auto) 0.0, Large Unclassified Cells % 4.1H, Large Unclassified Cells # 0.3, Prothrombin Time 13.5, Prothromb Time International Ratio 1.02, Activated Partial Thromboplast Time 35.5, Anion Gap 5L , Glomerular Filtration Rate > 60.0, Blood Urea Nitrogen 13, Creatinine 0.71, Sodium Level 136, Potassium Level 3.5, Chloride Level 96L, Carbon Dioxide Level 35H, Calcium Level 8.8 CBC/BMP Laboratory Tests 12/22/16 06:25 Red Blood Count 2.99 L, Mean Corpuscular Volume 90.1, Mean Corpuscular Hemoglobin 31.8, Mean Corpuscular Hemoglobin Concent 35.3, Red Cell Distribution Width 12.8, Neutrophils (%) (Auto) 74.4 H, Lymphocytes (%) (Auto) 12.9 L, Monocytes (%) (Auto) 6.5 H, Eosinophils (%) (Auto) 1.9, Basophils (%) ( Auto) 0.2, Neutrophils # (Auto) 5.7, Lymphocytes # (Auto) 1.0 L, Monocytes # ( Auto) 0.5, Eosinophils # (Auto) 0.2, Basophils # (Auto) 0.0, Calcium Level 8.8 JACLYN SAMANIEGO MD Dec 22, 2016 11:46
[2016-12-22 14:00] VITALS: BP 138/74
[2016-12-22] MEDS: HEPARIN SOD (PORCINE) 5000 UNITS/ML VIAL IV PRN (17:44)
[2016-12-22] MEDS: WARFARIN SOD 5 MG TAB PO SCH (17:47)
[2016-12-22] MEDS: AMITRIPTYLINE 50 MG TAB PO SCH (21:20)
[2016-12-22 22:00] VITALS: BP 159/74
[2016-12-23] MEDS: CYCLOBENZAPRINE 10 MG TAB PO PRN (02:57)
[2016-12-23] MEDS: HEPARIN DRIP 25,000 UNITS in APPROPRIATE DILUENT 1 EA IV SCH (03:43)
[2016-12-23 06:00] VITALS: BP 135/70
[2016-12-23] MEDS: LEVOTHYROXINE 100MCG TABLET (0.1MG) PO SCH (06:02)
[2016-12-23] MEDS: LEVOTHYROXINE 75MCG TABLET (0.075MG) PO SCH (06:02)
[2016-12-23 07:02] LABS: BASO % 0.2 % (0.0-1.0); EOS # 0.2 K/mm3 (0.0-0.50); LARGE UNSTAINED CELL # 0.3 K/mm3 (0.0-0.4); LARGE UNSTAINED CELL % 4.1 % (0.0-4.0); LYMPH # 1.4 K/mm3 (1.5-4.5); LYMPH % 16.7 % (24.0-44.0); MEAN CORPUSCULAR HEMOGLOBIN 31.1 pg (27.0-33.0); MEAN CORPUSCULAR HGB CONC 33.6 g/dl (32.0-36.5); MEAN CORPUSCULAR VOLUME 92.6 fl (80.0-96.0); MONO # 0.6 K/mm3 (0.0-0.8); MONO % 8.4 % (0.0-5.0); NEUTROPHILS # 4.6 K/mm3 (1.8-7.7); NEUTROPHILS % 67.6 % (36.0-66.0); PLATELET COUNT, AUTOMATED 290 k/mm3 (150-450); RED CELL DISTRIBUTION WIDTH 13.1 % (11.5-14.5); WHITE BLOOD COUNT 6.7 K/mm3 (4.0-10.0)
[2016-12-23 07:05] LABS: INR 1.09
[2016-12-23 07:26] LABS: ANION GAP 7 MEQ/L (8-16); BLOOD UREA NITROGEN 11 MG/DL (7-18); CALCIUM LEVEL 8.5 MG/DL (8.8-10.2); CARBON DIOXIDE LEVEL 32 MEQ/L (21-32); CHLORIDE LEVEL 97 MEQ/L (98-107); CREATININE FOR GFR 0.62 MG/DL (0.70-1.30); GLOMERULAR FILTRATION RATE > 60.0 (>42); GLUCOSE, FASTING 113 MG/DL (83-110); POTASSIUM SERUM 3.2 MEQ/L (3.5-5.1); SODIUM LEVEL 136 MEQ/L (136-145)
[2016-12-23] MEDS: MULTIVITAMINS/MINERALS THERAP 1 TAB PO SCH (08:45)
[2016-12-23] MEDS: DULoxetine 30 MG CAP (CYMBALTA) PO SCH (08:45)
[2016-12-23] MEDS: GABAPENTIN 300 MG CAP PO SCH ×3 (08:45→21:18)
[2016-12-23] MEDS: OMEPRAZOLE 20 MG CAP PO SCH (08:45)
[2016-12-23] MEDS: MAGNESIUM OXIDE 400 MG TAB (MAG-OX) PO SCH ×2 (08:45→21:19)
[2016-12-23] MEDS: DOCUSATE SODIUM 100 MG CAP PO SCH ×2 (08:46→21:18)
[2016-12-23] MEDS: SIMVASTATIN 40 MG TAB PO SCH (08:46)
[2016-12-23] MEDS: hydroCHLOROthiazide 25 MG TAB PO SCH (08:46)
[2016-12-23] MEDS: MIRALAX *UNIT DOSE* 17GM PACKET PO SCH (08:46)
[2016-12-23] MEDS ORDERED: POTASSIUM CHLORIDE 10 MEQ SR TABLET PO ONE (09:00)
[2016-12-23] MEDS: PERCOCET 5MG/325MG TAB PO PRN (13:46)
[2016-12-23 14:00] VITALS: BP 134/72
[2016-12-23] MEDS: WARFARIN SOD 5 MG TAB PO SCH (16:45)
--- NOTE | 2016-12-23 18:47 | IPNPDOC ---
Date Seen The patient was seen on 12/23/16. Progress Note Hospitalist Progress Note Subjective: Patient states that he is feeling well. He has no complaints Objective: Physical Exam: Vitals: Vital Sign - Last 24 Hours 12/22/16 12/23/16 12/23/16 12/23/16 22:00 06:00 13:46 14:42 Temp 98.2 98.4 Pulse 76 78 Resp 18 18 14 14 B/P (MAP) 159/74 (102) 135/70 (91) Pulse Ox 96 95 O2 Delivery Room Air Room Air General: Awake, alert, no acute distress HEENT: Normocephalic, moist mucous membranes CV: Regular rate and rhythm Lungs: Clear to auscultation bilaterally Abd: Soft, nontender, nondistended Extremities: No edema Neuro: Alert And oriented 3, normal speech Psych: Normal mood and affect Labs and Imaging: Laboratory Tests 12/23/16 06:35 Red Blood Count 3.00 L, Mean Corpuscular Volume 92.6, Mean Corpuscular Hemoglobin 31.1, Mean Corpuscular Hemoglobin Concent 33.6, Red Cell Distribution Width 13.1, Neutrophils (%) (Auto) 67.6 H, Lymphocytes (%) (Auto) 16.7 L, Monocytes (%) (Auto) 8.4 H, Eosinophils (%) (Auto) 3.0, Basophils (%) ( Auto) 0.2, Neutrophils # (Auto) 4.6, Lymphocytes # (Auto) 1.4 L, Monocytes # ( Auto) 0.6, Eosinophils # (Auto) 0.2, Basophils # (Auto) 0.0, Calcium Level 8.5 L Assessment and Plan: 81-year-old male with spinal stenosis, hypertension, history of PE, hypothyroidism, hyperlipidemia, GERD who underwent elective laminectomy with Dr. Jean. We have been consult and for management of his chronic medical problems. 1. History of PE: The patient is heterozygous for factor V Leiden. Continue heparin drip with Coumadin bridging until INR is therapeutic. 2. Hypertension: Continue home HCTZ. 3. Hyperlipidemia: Continue home statin 4. GERD: Continue home PPI 5. Hypothyroidism: Continue home Synthroid 6. Insomnia: Continue home meds DVT prophylaxis: Heparin drip bridging to Coumadin Dispo: patient will need to remain on heparin drip until INR is therapeutic; given his history of factor V Leiden with PE, he is high risk for postoperative clot VS, I&O, 24H, Fishbone Vital Signs/I&O Vital Signs Date Time Temp Pulse Resp B/P (MAP) Pulse Ox O2 Delivery O2 Flow Rate FiO2 12/23/16 14:42 14 12/23/16 06:00 98.4 78 135/70 (91) 95 Room Air 12/19/16 14:00 2.0 I&O- Last 24 Hours up to 6 AM 12/23/16 06:00 Intake Total 1680 ml Output Total 1000 ml Balance 680 ml Laboratory Data 24H LABS Laboratory Tests 2 12/22/16 23:26: Activated Partial Thromboplast Time 93.5H 12/23/16 06:35: Activated Partial Thromboplast Time 109.6H, White Blood Count 6.7, Red Blood Count 3.00L, Hemoglobin 9.3L, Hematocrit 27.7L, Mean Corpuscular Volume 92.6, Mean Corpuscular Hemoglobin 31.1, Mean Corpuscular Hemoglobin Concent 33.6, Red Cell Distribution Width 13.1, Platelet Count 290, Neutrophils (%) (Auto) 67.6H, Lymphocytes (%) (Auto) 16.7L, Monocytes (%) (Auto) 8.4H, Eosinophils (%) (Auto) 3.0, Basophils (%) (Auto) 0.2, Neutrophils # (Auto) 4.6, Lymphocytes # (Auto) 1.4L, Monocytes # (Auto) 0.6, Eosinophils # (Auto) 0.2, Basophils # (Auto) 0.0, Large Unclassified Cells % 4.1H, Large Unclassified Cells # 0.3, Prothrombin Time 14.3, Prothromb Time International Ratio 1.09, Anion Gap 7L, Glomerular Filtration Rate > 60.0, Blood Urea Nitrogen 11, Creatinine 0.62L, Sodium Level 136, Potassium Level 3.2L, Chloride Level 97L, Carbon Dioxide Level 32, Calcium Level 8.5L 12/23/16 13:56: Activated Partial Thromboplast Time 71.1H CBC/BMP Laboratory Tests 12/23/16 06:35 Red Blood Count 3.00 L, Mean Corpuscular Volume 92.6, Mean Corpuscular Hemoglobin 31.1, Mean Corpuscular Hemoglobin Concent 33.6, Red Cell Distribution Width 13.1, Neutrophils (%) (Auto) 67.6 H, Lymphocytes (%) (Auto) 16.7 L, Monocytes (%) (Auto) 8.4 H, Eosinophils (%) (Auto) 3.0, Basophils (%) ( Auto) 0.2, Neutrophils # (Auto) 4.6, Lymphocytes # (Auto) 1.4 L, Monocytes # ( Auto) 0.6, Eosinophils # (Auto) 0.2, Basophils # (Auto) 0.0, Calcium Level 8.5 L LYNETTE STARR Dec 23, 2016 18:47
[2016-12-23] MEDS: AMITRIPTYLINE 50 MG TAB PO SCH (21:18)
[2016-12-23 22:00] VITALS: BP 136/72
[2016-12-24] MEDS: HEPARIN DRIP 25,000 UNITS in APPROPRIATE DILUENT 1 EA IV SCH ×2 (02:11→23:01)
[2016-12-24 06:00] VITALS: BP 164/84
[2016-12-24] MEDS: LEVOTHYROXINE 100MCG TABLET (0.1MG) PO SCH (06:05)
[2016-12-24] MEDS: LEVOTHYROXINE 75MCG TABLET (0.075MG) PO SCH (06:05)
[2016-12-24 06:42] LABS: BASO % 0.3 % (0.0-1.0); EOS # 0.2 K/mm3 (0.0-0.50); EOS % 2.9 % (0.0-3.0); INR 1.07; LARGE UNSTAINED CELL # 0.3 K/mm3 (0.0-0.4); LARGE UNSTAINED CELL % 4.3 % (0.0-4.0); LYMPH # 1.3 K/mm3 (1.5-4.5); LYMPH % 22.6 % (24.0-44.0); MEAN CORPUSCULAR HEMOGLOBIN 31.5 pg (27.0-33.0); MEAN CORPUSCULAR HGB CONC 34.5 g/dl (32.0-36.5); MEAN CORPUSCULAR VOLUME 91.3 fl (80.0-96.0); MONO # 0.5 K/mm3 (0.0-0.8); MONO % 7.8 % (0.0-5.0); NEUTROPHILS # 3.6 K/mm3 (1.8-7.7); PLATELET COUNT, AUTOMATED 351 k/mm3 (150-450); RED CELL DISTRIBUTION WIDTH 12.8 % (11.5-14.5); WHITE BLOOD COUNT 5.8 K/mm3 (4.0-10.0)
[2016-12-24 06:50] LABS: ANION GAP 9 MEQ/L (8-16); BLOOD UREA NITROGEN 9 MG/DL (7-18); CALCIUM LEVEL 8.4 MG/DL (8.8-10.2); CARBON DIOXIDE LEVEL 30 MEQ/L (21-32); CHLORIDE LEVEL 100 MEQ/L (98-107); CREATININE FOR GFR 0.63 MG/DL (0.70-1.30); GLOMERULAR FILTRATION RATE > 60.0 (>42); GLUCOSE, FASTING 115 MG/DL (83-110); POTASSIUM SERUM 3.5 MEQ/L (3.5-5.1); SODIUM LEVEL 139 MEQ/L (136-145)
[2016-12-24] MEDS: HEPARIN SOD (PORCINE) 5000 UNITS/ML VIAL IV PRN (07:14)
[2016-12-24] MEDS: DULoxetine 30 MG CAP (CYMBALTA) PO SCH (08:41)
[2016-12-24] MEDS: SIMVASTATIN 40 MG TAB PO SCH (08:41)
[2016-12-24] MEDS: MULTIVITAMINS/MINERALS THERAP 1 TAB PO SCH (08:41)
[2016-12-24] MEDS: GABAPENTIN 300 MG CAP PO SCH ×3 (08:42→20:30)
[2016-12-24] MEDS: OMEPRAZOLE 20 MG CAP PO SCH (08:42)
[2016-12-24] MEDS: MIRALAX *UNIT DOSE* 17GM PACKET PO SCH (08:42)
[2016-12-24] MEDS: DOCUSATE SODIUM 100 MG CAP PO SCH ×2 (08:42→20:32)
[2016-12-24] MEDS: hydroCHLOROthiazide 25 MG TAB PO SCH (08:42)
[2016-12-24] MEDS: MAGNESIUM OXIDE 400 MG TAB (MAG-OX) PO SCH ×2 (08:42→20:31)
[2016-12-24] MEDS: PERCOCET 5MG/325MG TAB PO PRN ×3 (11:17→20:32)
[2016-12-24 14:00] VITALS: BP 152/74
[2016-12-24] MEDS: WARFARIN SOD 5 MG TAB PO SCH (16:21)
--- NOTE | 2016-12-24 17:20 | IPNPDOC ---
Date Seen The patient was seen on 12/24/16. Progress Note Hospitalist Progress Note Subjective: Patient states that he was confused when he first got up this morning. He states that he now seems better, but he does report being up a lot to urinate frequently and have loose BMs Objective: Physical Exam: Vitals: Vital Sign - Last 24 Hours 12/23/16 12/24/16 12/24/16 12/24/16 22:00 06:00 11:17 11:47 Temp 98.1 99.0 Pulse 75 82 Resp 18 18 12 12 B/P (MAP) 136/72 (93) 164/84 (110) Pulse Ox 97 99 O2 Delivery Room Air Room Air 12/24/16 12/24/16 14:00 16:20 Temp 98.7 Pulse 79 Resp 18 12 B/P (MAP) 152/74 (100) Pulse Ox 98 O2 Delivery Room Air General: Awake, alert, no acute distress HEENT: moist mucous membranes CV: Regular rate and rhythm Lungs: Clear to auscultation bilaterally Abd: Soft, nontender, nondistended Extremities: No edema Neuro: Alert And oriented 3, normal speech Psych: Normal mood and affect Labs and Imaging: Laboratory Tests 12/24/16 06:19 Red Blood Count 3.09 L, Mean Corpuscular Volume 91.3, Mean Corpuscular Hemoglobin 31.5, Mean Corpuscular Hemoglobin Concent 34.5, Red Cell Distribution Width 12.8, Neutrophils (%) (Auto) 62.0, Lymphocytes (%) (Auto) 22.6 L, Monocytes (%) (Auto) 7.8 H, Eosinophils (%) (Auto) 2.9, Basophils (%) ( Auto) 0.3, Neutrophils # (Auto) 3.6, Lymphocytes # (Auto) 1.3 L, Monocytes # ( Auto) 0.5, Eosinophils # (Auto) 0.2, Basophils # (Auto) 0.0, Calcium Level 8.4 L Assessment and Plan: 81-year-old male with spinal stenosis, hypertension, history of PE, hypothyroidism, hyperlipidemia, GERD who underwent elective laminectomy with Dr. Jean. We have been consulted for management of his chronic medical problems. 1. History of PE: The patient is heterozygous for factor V Leiden. Continue heparin drip with Coumadin bridging until INR is therapeutic. A rise in INR is not expected until 48-72h after initiation of coumadin therapy, so a lack in change of INR today is expected. If no change tomorrow, could consider giving an extra dose. 2. Hypertension: Continue home HCTZ. 3. Hyperlipidemia: Continue home statin 4. GERD: Continue home PPI 5. Hypothyroidism: Continue home Synthroid 6. Insomnia: Continue home meds 7. Urinary frequency and loose stools: Check UA and GI panel. DVT prophylaxis: Heparin drip bridging to Coumadin Dispo: patient will need to remain on heparin drip until INR is therapeutic; given his history of factor V Leiden with PE, he is high risk for postoperative clot VS, I&O, 24H, Fishbone Vital Signs/I&O Vital Signs Date Time Temp Pulse Resp B/P (MAP) Pulse Ox O2 Delivery O2 Flow Rate FiO2 12/24/16 16:20 12 12/24/16 14:00 98.7 79 152/74 (100) 98 Room Air 12/19/16 14:00 2.0 I&O- Last 24 Hours up to 6 AM 12/24/16 06:00 Intake Total 1350 ml Output Total 875 ml Balance 475 ml Laboratory Data 24H LABS Laboratory Tests 2 12/23/16 19:46: Activated Partial Thromboplast Time 74.3H 12/24/16 01:49: Activated Partial Thromboplast Time 73.0H 12/24/16 06:19: Activated Partial Thromboplast Time 52.3H, White Blood Count 5.8, Red Blood Count 3.09L, Hemoglobin 9.7L, Hematocrit 28.2L, Mean Corpuscular Volume 91.3, Mean Corpuscular Hemoglobin 31.5, Mean Corpuscular Hemoglobin Concent 34.5, Red Cell Distribution Width 12.8, Platelet Count 351, Neutrophils (%) (Auto) 62.0, Lymphocytes (%) (Auto) 22.6L, Monocytes (%) (Auto) 7.8H, Eosinophils (%) (Auto) 2.9, Basophils (%) (Auto) 0.3, Neutrophils # (Auto) 3.6, Lymphocytes # (Auto) 1.3L, Monocytes # (Auto) 0.5, Eosinophils # (Auto) 0.2, Basophils # (Auto) 0.0, Large Unclassified Cells % 4.3H, Large Unclassified Cells # 0.3, Prothrombin Time 14.0, Prothromb Time International Ratio 1.07, Anion Gap 9, Glomerular Filtration Rate > 60.0, Blood Urea Nitrogen 9, Creatinine 0.63L, Sodium Level 139, Potassium Level 3.5, Chloride Level 100, Carbon Dioxide Level 30, Calcium Level 8.4L 12/24/16 12:50: Activated Partial Thromboplast Time 81.4H 12/24/16 12:59: Urine Appearance CLEAR, Urine Color YELLOW, Urine pH 7.0, Urine Specific [place] 1.010, Urine Protein NEGATIVE, Urine Glucose (UA) NEGATIVE, Urine Ketones NEGATIVE, Urine Urobilinogen 0.2, Urine Bilirubin NEGATIVE, Urine Leukocyte Esterase NEGATIVE, Urine Blood NEGATIVE, Urine Nitrite NEGATIVE, Urine WBC (Auto) 0, Urine RBC (Auto) 2, Urine Hyaline Casts (Auto) 0, Urine Bacteria (Auto) NEGATIVE, Urine Squamous Epithelial Cells 0, Urine Sperm (Auto) CBC/BMP Laboratory Tests 12/24/16 06:19 Red Blood Count 3.09 L, Mean Corpuscular Volume 91.3, Mean Corpuscular Hemoglobin 31.5, Mean Corpuscular Hemoglobin Concent 34.5, Red Cell Distribution Width 12.8, Neutrophils (%) (Auto) 62.0, Lymphocytes (%) (Auto) 22.6 L, Monocytes (%) (Auto) 7.8 H, Eosinophils (%) (Auto) 2.9, Basophils (%) ( Auto) 0.3, Neutrophils # (Auto) 3.6, Lymphocytes # (Auto) 1.3 L, Monocytes # ( Auto) 0.5, Eosinophils # (Auto) 0.2, Basophils # (Auto) 0.0, Calcium Level 8.4 L Microbiology Microbiology 12/24/16 Gastrointestinal Tract Panel (PCR) - Final, Complete 12/23/16 Stool Occult Blood (KEVIN) - Final, Complete LYNETTE STARR Dec 24, 2016 17:20
[2016-12-24] MEDS: AMITRIPTYLINE 50 MG TAB PO SCH (20:30)
[2016-12-24 22:00] VITALS: BP 130/58
[2016-12-25 06:00] VITALS: BP 160/85
[2016-12-25] MEDS: LEVOTHYROXINE 75MCG TABLET (0.075MG) PO SCH (06:33)
[2016-12-25] MEDS: LEVOTHYROXINE 100MCG TABLET (0.1MG) PO SCH (06:34)
[2016-12-25 06:45] LABS: BASO % 0.7 % (0.0-1.0); EOS # 0.3 K/mm3 (0.0-0.50); LARGE UNSTAINED CELL # 0.3 K/mm3 (0.0-0.4); LARGE UNSTAINED CELL % 3.8 % (0.0-4.0); LYMPH # 2.2 K/mm3 (1.5-4.5); LYMPH % 28.3 % (24.0-44.0); MEAN CORPUSCULAR HEMOGLOBIN 31.3 pg (27.0-33.0); MEAN CORPUSCULAR HGB CONC 34.3 g/dl (32.0-36.5); MEAN CORPUSCULAR VOLUME 91.4 fl (80.0-96.0); MONO # 0.6 K/mm3 (0.0-0.8); MONO % 8.3 % (0.0-5.0); NEUTROPHILS # 3.7 K/mm3 (1.8-7.7); NEUTROPHILS % 54.9 % (36.0-66.0); PLATELET COUNT, AUTOMATED 366 k/mm3 (150-450); RED CELL DISTRIBUTION WIDTH 13.1 % (11.5-14.5); WHITE BLOOD COUNT 6.8 K/mm3 (4.0-10.0)
[2016-12-25 06:53] LABS: INR 1.21
[2016-12-25 07:05] LABS: ANION GAP 9 MEQ/L (8-16); BLOOD UREA NITROGEN 9 MG/DL (7-18); CALCIUM LEVEL 8.9 MG/DL (8.8-10.2); CARBON DIOXIDE LEVEL 30 MEQ/L (21-32); CHLORIDE LEVEL 101 MEQ/L (98-107); CREATININE FOR GFR 0.66 MG/DL (0.70-1.30); GLOMERULAR FILTRATION RATE > 60.0 (>42); GLUCOSE, FASTING 105 MG/DL (83-110); POTASSIUM SERUM 3.6 MEQ/L (3.5-5.1); SODIUM LEVEL 140 MEQ/L (136-145)
[2016-12-25] MEDS: HEPARIN DRIP 25,000 UNITS in APPROPRIATE DILUENT 1 EA IV SCH ×2 (08:06→21:51)
[2016-12-25] MEDS: MAGNESIUM OXIDE 400 MG TAB (MAG-OX) PO SCH ×2 (09:04→21:47)
[2016-12-25] MEDS: GABAPENTIN 300 MG CAP PO SCH ×3 (09:05→21:47)
[2016-12-25] MEDS: DOCUSATE SODIUM 100 MG CAP PO SCH ×2 (09:05→21:00)
[2016-12-25] MEDS: SIMVASTATIN 40 MG TAB PO SCH (09:05)
[2016-12-25] MEDS: DULoxetine 30 MG CAP (CYMBALTA) PO SCH (09:05)
[2016-12-25] MEDS: OMEPRAZOLE 20 MG CAP PO SCH (09:06)
[2016-12-25] MEDS: MULTIVITAMINS/MINERALS THERAP 1 TAB PO SCH (09:06)
[2016-12-25] MEDS: hydroCHLOROthiazide 25 MG TAB PO SCH (09:06)
[2016-12-25] MEDS: MIRALAX *UNIT DOSE* 17GM PACKET PO SCH (09:06)
[2016-12-25] MEDS: PERCOCET 5MG/325MG TAB PO PRN (09:10)
[2016-12-25 14:00] VITALS: BP 146/72
[2016-12-25 15:51] LABS: INR 1.21
[2016-12-25] MEDS: WARFARIN SOD 5 MG TAB PO SCH (15:58)
[2016-12-25 20:30] LABS: INR 1.25
--- NOTE | 2016-12-25 21:24 | IPNPDOC ---
Date Seen The patient was seen on 12/25/16. Progress Note Hospitalist Progress Note Subjective: Patient states that he is feeling better; no more diarrhea Objective: Physical Exam: Vitals: Vital Sign - Last 24 Hours 12/24/16 12/25/16 12/25/16 12/25/16 22:00 06:00 09:10 10:26 Temp 97.9 97.8 Pulse 65 76 Resp 18 18 18 18 B/P (MAP) 130/58 (82) 160/85 (110) Pulse Ox 97 98 96 O2 Delivery Room Air Room Air Room Air Room Air 12/25/16 14:00 Temp 98.3 Pulse 75 Resp 20 B/P (MAP) 146/72 (96) Pulse Ox 98 General: Awake, alert, no acute distress HEENT: moist mucous membranes CV: Regular rate and rhythm Lungs: Clear to auscultation bilaterally Abd: Soft, nontender, nondistended Extremities: No edema Neuro: Alert And oriented 3, normal speech Psych: Normal mood and affect Labs and Imaging: Laboratory Tests 12/25/16 06:13 Red Blood Count 3.06 L, Mean Corpuscular Volume 91.4, Mean Corpuscular Hemoglobin 31.3, Mean Corpuscular Hemoglobin Concent 34.3, Red Cell Distribution Width 13.1, Neutrophils (%) (Auto) 54.9, Lymphocytes (%) (Auto) 28.3, Monocytes (%) (Auto) 8.3 H, Eosinophils (%) (Auto) 4.0 H, Basophils (%) ( Auto) 0.7, Neutrophils # (Auto) 3.7, Lymphocytes # (Auto) 2.2, Monocytes # (Auto ) 0.6, Eosinophils # (Auto) 0.3, Basophils # (Auto) 0.0, Calcium Level 8.9 Assessment and Plan: 81-year-old male with spinal stenosis, hypertension, history of PE, hypothyroidism, hyperlipidemia, GERD who underwent elective laminectomy with Dr. Jean. We have been consulted for management of his chronic medical problems. 1. History of PE: The patient is heterozygous for factor V Leiden. Continue heparin drip with Coumadin bridging until INR is therapeutic. INR 1.21 today. 2. Hypertension: Continue home HCTZ. 3. Hyperlipidemia: Continue home statin 4. GERD: Continue home PPI 5. Hypothyroidism: Continue home Synthroid 6. Insomnia: Continue home meds 7. Urinary frequency and loose stools: UA and GI panel negative; now resolved. DVT prophylaxis: Heparin drip bridging to Coumadin Dispo: patient will need to remain on heparin drip until INR is therapeutic; given his history of factor V Leiden with PE, he is high risk for postoperative clot VS, I&O, 24H, Fishbone Vital Signs/I&O Vital Signs Date Time Temp Pulse Resp B/P (MAP) Pulse Ox O2 Delivery O2 Flow Rate FiO2 12/25/16 14:00 98.3 75 20 146/72 (96) 98 12/25/16 10:26 Room Air 12/19/16 14:00 2.0 I&O- Last 24 Hours up to 6 AM 12/25/16 05:59 Intake Total 1320 ml Output Total 1100 ml Balance 220 ml Laboratory Data 24H LABS Laboratory Tests 2 12/25/16 06:13: White Blood Count 6.8, Red Blood Count 3.06L, Hemoglobin 9.6L, Hematocrit 28.0L , Mean Corpuscular Volume 91.4, Mean Corpuscular Hemoglobin 31.3, Mean Corpuscular Hemoglobin Concent 34.3, Red Cell Distribution Width 13.1, Platelet Count 366, Neutrophils (%) (Auto) 54.9, Lymphocytes (%) (Auto) 28.3, Monocytes ( %) (Auto) 8.3H, Eosinophils (%) (Auto) 4.0H, Basophils (%) (Auto) 0.7, Neutrophils # (Auto) 3.7, Lymphocytes # (Auto) 2.2, Monocytes # (Auto) 0.6, Eosinophils # (Auto) 0.3, Basophils # (Auto) 0.0, Large Unclassified Cells % 3.8 , Large Unclassified Cells # 0.3, Prothrombin Time 15.5H, Prothromb Time International Ratio 1.21, Activated Partial Thromboplast Time 112.7H, Anion Gap 9, Glomerular Filtration Rate > 60.0, Blood Urea Nitrogen 9, Creatinine 0.66L, Sodium Level 140, Potassium Level 3.6, Chloride Level 101, Carbon Dioxide Level 30, Calcium Level 8.9 12/25/16 13:50: Prothrombin Time 15.5H, Prothromb Time International Ratio 1.21, Activated Partial Thromboplast Time 75.1H 12/25/16 19:59: Prothrombin Time 15.9H, Prothromb Time International Ratio 1.25, Activated Partial Thromboplast Time 79.0H CBC/BMP Laboratory Tests 12/25/16 06:13 Red Blood Count 3.06 L, Mean Corpuscular Volume 91.4, Mean Corpuscular Hemoglobin 31.3, Mean Corpuscular Hemoglobin Concent 34.3, Red Cell Distribution Width 13.1, Neutrophils (%) (Auto) 54.9, Lymphocytes (%) (Auto) 28.3, Monocytes (%) (Auto) 8.3 H, Eosinophils (%) (Auto) 4.0 H, Basophils (%) ( Auto) 0.7, Neutrophils # (Auto) 3.7, Lymphocytes # (Auto) 2.2, Monocytes # (Auto ) 0.6, Eosinophils # (Auto) 0.3, Basophils # (Auto) 0.0, Calcium Level 8.9 Microbiology Microbiology 12/24/16 Gastrointestinal Tract Panel (PCR) - Final, Complete 12/23/16 Stool Occult Blood (KEVIN) - Final, Complete LYNETTE STARR Dec 25, 2016 21:24
[2016-12-25] MEDS: AMITRIPTYLINE 50 MG TAB PO SCH (21:47)
[2016-12-25 22:00] VITALS: BP_SYST 129; BP_SYST 219; BP_DIAS 79
[2016-12-26] MEDS: LEVOTHYROXINE 75MCG TABLET (0.075MG) PO SCH (05:38)
[2016-12-26] MEDS: LEVOTHYROXINE 100MCG TABLET (0.1MG) PO SCH (05:38)
[2016-12-26 06:00] VITALS: BP 147/68
[2016-12-26 06:52] LABS: BASO % 0.5 % (0.0-1.0); EOS # 0.3 K/mm3 (0.0-0.50); EOS % 5.2 % (0.0-3.0); LARGE UNSTAINED CELL # 0.3 K/mm3 (0.0-0.4); LARGE UNSTAINED CELL % 4.9 % (0.0-4.0); LYMPH # 1.7 K/mm3 (1.5-4.5); MEAN CORPUSCULAR HEMOGLOBIN 30.9 pg (27.0-33.0); MEAN CORPUSCULAR HGB CONC 33.4 g/dl (32.0-36.5); MEAN CORPUSCULAR VOLUME 92.5 fl (80.0-96.0); MONO # 0.4 K/mm3 (0.0-0.8); MONO % 6.5 % (0.0-5.0); NEUTROPHILS # 3.8 K/mm3 (1.8-7.7); NEUTROPHILS % 56.9 % (36.0-66.0); PLATELET COUNT, AUTOMATED 471 k/mm3 (150-450); RED CELL DISTRIBUTION WIDTH 12.8 % (11.5-14.5); WHITE BLOOD COUNT 6.6 K/mm3 (4.0-10.0)
[2016-12-26 06:58] LABS: INR 1.31
[2016-12-26 07:21] LABS: ANION GAP 8 MEQ/L (8-16); BLOOD UREA NITROGEN 10 MG/DL (7-18); CALCIUM LEVEL 8.3 MG/DL (8.8-10.2); CARBON DIOXIDE LEVEL 30 MEQ/L (21-32); CHLORIDE LEVEL 103 MEQ/L (98-107); CREATININE FOR GFR 0.69 MG/DL (0.70-1.30); GLOMERULAR FILTRATION RATE > 60.0 (>42); GLUCOSE, FASTING 104 MG/DL (83-110); POTASSIUM SERUM 4.3 MEQ/L (3.5-5.1); SODIUM LEVEL 141 MEQ/L (136-145)
[2016-12-26] MEDS ORDERED: PERCOCET 5MG/325MG TAB PO PRN (08:30)
[2016-12-26] MEDS: GABAPENTIN 300 MG CAP PO SCH ×3 (08:34→20:37)
[2016-12-26] MEDS: OMEPRAZOLE 20 MG CAP PO SCH (08:34)
[2016-12-26] MEDS: MAGNESIUM OXIDE 400 MG TAB (MAG-OX) PO SCH ×2 (08:35→20:38)
[2016-12-26] MEDS: DOCUSATE SODIUM 100 MG CAP PO SCH ×2 (08:35→20:38)
[2016-12-26] MEDS: SIMVASTATIN 40 MG TAB PO SCH (08:35)
[2016-12-26] MEDS: MULTIVITAMINS/MINERALS THERAP 1 TAB PO SCH (08:35)
[2016-12-26] MEDS: MIRALAX *UNIT DOSE* 17GM PACKET PO SCH (08:36)
[2016-12-26] MEDS: DULoxetine 30 MG CAP (CYMBALTA) PO SCH (08:36)
[2016-12-26] MEDS: hydroCHLOROthiazide 25 MG TAB PO SCH (08:36)
[2016-12-26] MEDS: PERCOCET 5MG/325MG TAB PO PRN (08:57)
--- NOTE | 2016-12-26 13:42 | IPNPDOC ---
Subjective Date Seen The patient was seen on 12/26/16. Subjective Chief Complaint/HPI The patient is a 81-year-old male admitted with a reason for visit of Spinal Stenosis Lumbar. Events since last encounter No complaints today. Objective Physical Examination General Exam: Positive: Alert, Cooperative, No Acute Distress Eye Exam: Positive: PERRLA, Conjunctiva & lids normal, EOMI, Negative: Sclera icteric ENT Exam: Positive: Atraumatic, Mucous membr. moist/pink, Pharynx Normal Neck Exam: Positive: Supple, Negative: JVD, thyromegaly Chest Exam: Positive: Clear to auscultation, Normal air movement Heart Exam: Positive: Rate Normal, Regular Rhythm, Normal S1, Normal S2, Negative: Murmurs, Rubs Abdomen Exam: Positive: Normal bowel sounds, Soft, Negative: Tenderness, Hepatospenomegaly Extremity Exam: Positive: Normal pulses, Negative: Clubbing, Cyanosis, Edema Skin Exam: Positive: Nl turgor and temperature, Negative: Rash, Breakdown Assessment /Plan Problems (1) Spinal stenosis Problem Text: s/p right unilateral laminectomy L3, L4-L5 with posterior fusion in situ on 12/18 surgery was uneventful. pain control and dvt prophylasix as per orthopedics. (2) History of pulmonary embolism Status: Chronic Problem Text: Had PE in 2008 , Had factor V leiden heterozygous. On iv heparin and coumadin bridging . coumadin increased to 10 mg. will try to keep PTT 1.5 to 2 times normal that is between 55 to 70 (3) Obesity Status: Chronic (4) GERD (gastroesophageal reflux disease) Status: Chronic (5) Hyperlipidemia Status: Chronic (6) Hypertension Status: Chronic (7) Hypothyroid Status: Chronic Plan/VTE VTE Prophylaxis Ordered?: Yes VS, I&O, 24H, Fishbone Vital Signs/I&O Vital Signs Date Time Temp Pulse Resp B/P (MAP) Pulse Ox O2 Delivery O2 Flow Rate FiO2 12/26/16 09:31 18 Room Air 12/26/16 06:00 98.3 70 147/68 (94) 97 I&O- Last 24 Hours up to 6 AM 12/26/16 06:00 Intake Total 480 ml Output Total 1500 ml Balance -1020 ml Laboratory Data 24H LABS Laboratory Tests 2 12/25/16 13:50: Prothrombin Time 15.5H, Prothromb Time International Ratio 1.21, Activated Partial Thromboplast Time 75.1H 12/25/16 19:59: Prothrombin Time 15.9H, Prothromb Time International Ratio 1.25, Activated Partial Thromboplast Time 79.0H 12/26/16 06:31: Prothrombin Time 16.6H, Prothromb Time International Ratio 1.31, Activated Partial Thromboplast Time 99.6H, White Blood Count 6.6, Red Blood Count 3.37L, Hemoglobin 10.4L, Hematocrit 31.2L, Mean Corpuscular Volume 92.5, Mean Corpuscular Hemoglobin 30.9, Mean Corpuscular Hemoglobin Concent 33.4, Red Cell Distribution Width 12.8, Platelet Count 471H, Neutrophils (%) (Auto) 56.9, Lymphocytes (%) (Auto) 26.0, Monocytes (%) (Auto) 6.5H, Eosinophils (%) (Auto) 5.2H, Basophils (%) (Auto) 0.5, Neutrophils # (Auto) 3.8, Lymphocytes # (Auto) 1.7, Monocytes # (Auto) 0.4, Eosinophils # (Auto) 0.3, Basophils # (Auto) 0.0, Large Unclassified Cells % 4.9H, Large Unclassified Cells # 0.3, Anion Gap 8, Glomerular Filtration Rate > 60.0, Blood Urea Nitrogen 10, Creatinine 0.69L, Sodium Level 141, Potassium Level 4.3, Chloride Level 103, Carbon Dioxide Level 30, Calcium Level 8.3L CBC/BMP Laboratory Tests 12/26/16 06:31 Red Blood Count 3.37 L, Mean Corpuscular Volume 92.5, Mean Corpuscular Hemoglobin 30.9, Mean Corpuscular Hemoglobin Concent 33.4, Red Cell Distribution Width 12.8, Neutrophils (%) (Auto) 56.9, Lymphocytes (%) (Auto) 26.0, Monocytes (%) (Auto) 6.5 H, Eosinophils (%) (Auto) 5.2 H, Basophils (%) ( Auto) 0.5, Neutrophils # (Auto) 3.8, Lymphocytes # (Auto) 1.7, Monocytes # (Auto ) 0.4, Eosinophils # (Auto) 0.3, Basophils # (Auto) 0.0, Calcium Level 8.3 L Microbiology Microbiology 12/24/16 Gastrointestinal Tract Panel (PCR) - Final, Complete 12/23/16 Stool Occult Blood (KEVIN) - Final, Complete JACLYN SAMANIEGO MD Dec 26, 2016 13:42
[2016-12-26 14:00] VITALS: BP 120/55
[2016-12-26] MEDS: WARFARIN SOD 5 MG TAB PO SCH (16:05)
[2016-12-26] MEDS: AMITRIPTYLINE 50 MG TAB PO SCH (20:38)
[2016-12-26] MEDS: HEPARIN DRIP 25,000 UNITS in APPROPRIATE DILUENT 1 EA IV SCH (20:41)
[2016-12-26 22:00] VITALS: BP 144/67
[2016-12-27] MEDS: LEVOTHYROXINE 100MCG TABLET (0.1MG) PO SCH (05:31)
[2016-12-27] MEDS: LEVOTHYROXINE 75MCG TABLET (0.075MG) PO SCH (05:31)
[2016-12-27 06:00] VITALS: BP 138/71
[2016-12-27 07:16] LABS: BASO % 0.4 % (0.0-1.0); EOS # 0.4 K/mm3 (0.0-0.50); EOS % 4.8 % (0.0-3.0); LARGE UNSTAINED CELL # 0.3 K/mm3 (0.0-0.4); LARGE UNSTAINED CELL % 3.1 % (0.0-4.0); LYMPH # 2.4 K/mm3 (1.5-4.5); LYMPH % 26.3 % (24.0-44.0); MEAN CORPUSCULAR HEMOGLOBIN 30.8 pg (27.0-33.0); MEAN CORPUSCULAR HGB CONC 33.9 g/dl (32.0-36.5); MONO # 0.5 K/mm3 (0.0-0.8); MONO % 5.6 % (0.0-5.0); NEUTROPHILS % 59.8 % (36.0-66.0); PLATELET COUNT, AUTOMATED 479 k/mm3 (150-450); RED CELL DISTRIBUTION WIDTH 13.2 % (11.5-14.5); WHITE BLOOD COUNT 8.3 K/mm3 (4.0-10.0)
[2016-12-27 07:19] LABS: INR 1.56
[2016-12-27 07:33] LABS: ANION GAP 6 MEQ/L (8-16); BLOOD UREA NITROGEN 10 MG/DL (7-18); CALCIUM LEVEL 8.8 MG/DL (8.8-10.2); CARBON DIOXIDE LEVEL 30 MEQ/L (21-32); CHLORIDE LEVEL 103 MEQ/L (98-107); CREATININE FOR GFR 0.72 MG/DL (0.70-1.30); GLOMERULAR FILTRATION RATE > 60.0 (>42); GLUCOSE, FASTING 108 MG/DL (83-110); POTASSIUM SERUM 4.1 MEQ/L (3.5-5.1); SODIUM LEVEL 139 MEQ/L (136-145)
[2016-12-27] MEDS: PERCOCET 5MG/325MG TAB PO PRN (08:42)
[2016-12-27] MEDS: OMEPRAZOLE 20 MG CAP PO SCH (08:42)
[2016-12-27] MEDS: MULTIVITAMINS/MINERALS THERAP 1 TAB PO SCH (08:42)
[2016-12-27] MEDS: GABAPENTIN 300 MG CAP PO SCH ×3 (08:42→22:03)
[2016-12-27] MEDS: DOCUSATE SODIUM 100 MG CAP PO SCH ×2 (08:42→22:03)
[2016-12-27] MEDS: hydroCHLOROthiazide 25 MG TAB PO SCH (08:42)
[2016-12-27] MEDS: MAGNESIUM OXIDE 400 MG TAB (MAG-OX) PO SCH ×2 (08:43→22:03)
[2016-12-27] MEDS: SIMVASTATIN 40 MG TAB PO SCH (08:43)
[2016-12-27] MEDS: DULoxetine 30 MG CAP (CYMBALTA) PO SCH (08:43)
[2016-12-27] MEDS: MIRALAX *UNIT DOSE* 17GM PACKET PO SCH (08:43)
--- NOTE | 2016-12-27 11:07 | IPNPDOC ---
Subjective Date Seen The patient was seen on 12/27/16. Subjective Chief Complaint/HPI The patient is a 81-year-old male admitted with a reason for visit of Spinal Stenosis Lumbar. Events since last encounter no complaints today. Objective Physical Examination General Exam: Positive: Alert, Cooperative, No Acute Distress Eye Exam: Positive: PERRLA, Conjunctiva & lids normal, EOMI, Negative: Sclera icteric ENT Exam: Positive: Atraumatic, Mucous membr. moist/pink, Pharynx Normal Neck Exam: Positive: Supple, Negative: JVD, thyromegaly Chest Exam: Positive: Clear to auscultation, Normal air movement Heart Exam: Positive: Rate Normal, Regular Rhythm, Normal S1, Normal S2, Negative: Murmurs, Rubs Abdomen Exam: Positive: Normal bowel sounds, Soft, Negative: Tenderness, Hepatospenomegaly Extremity Exam: Positive: Normal pulses, Negative: Clubbing, Cyanosis, Edema Skin Exam: Positive: Nl turgor and temperature, Negative: Rash, Breakdown Assessment /Plan Problems (1) Spinal stenosis Problem Text: s/p right unilateral laminectomy L3, L4-L5 with posterior fusion in situ on 12/18 surgery was uneventful. pain control and dvt prophylasix as per orthopedics. (2) History of pulmonary embolism Status: Chronic Problem Text: Had PE in 2008 , Had factor V leiden heterozygous. On iv heparin and coumadin bridging . will try to keep PTT 1.5 to 2 times normal that is between 55 to 70 (3) Obesity Status: Chronic (4) GERD (gastroesophageal reflux disease) Status: Chronic (5) Hyperlipidemia Status: Chronic (6) Hypertension Status: Chronic (7) Hypothyroid Status: Chronic Plan/VTE VTE Prophylaxis Ordered?: Yes VS, I&O, 24H, Fishbone Vital Signs/I&O Vital Signs Date Time Temp Pulse Resp B/P (MAP) Pulse Ox O2 Delivery O2 Flow Rate FiO2 12/27/16 10:23 16 12/27/16 06:00 99.1 84 138/71 (93) 97 Room Air I&O- Last 24 Hours up to 6 AM 12/27/16 06:00 Intake Total 1560 ml Output Total 1000 ml Balance 560 ml Laboratory Data 24H LABS Laboratory Tests 2 12/27/16 07:00: White Blood Count 8.3, Red Blood Count 3.26L, Hemoglobin 10.0L, Hematocrit 29.7L , Mean Corpuscular Volume 91.0, Mean Corpuscular Hemoglobin 30.8, Mean Corpuscular Hemoglobin Concent 33.9, Red Cell Distribution Width 13.2, Platelet Count 479H, Neutrophils (%) (Auto) 59.8, Lymphocytes (%) (Auto) 26.3, Monocytes (%) (Auto) 5.6H, Eosinophils (%) (Auto) 4.8H, Basophils (%) (Auto) 0.4, Neutrophils # (Auto) 5.0, Lymphocytes # (Auto) 2.4, Monocytes # (Auto) 0.5, Eosinophils # (Auto) 0.4, Basophils # (Auto) 0.0, Large Unclassified Cells % 3.1 , Large Unclassified Cells # 0.3, Prothrombin Time 19.1H, Prothromb Time International Ratio 1.56, Anion Gap 6L, Glomerular Filtration Rate > 60.0, Blood Urea Nitrogen 10, Creatinine 0.72, Sodium Level 139, Potassium Level 4.1, Chloride Level 103, Carbon Dioxide Level 30, Calcium Level 8.8 CBC/BMP Laboratory Tests 12/27/16 07:00 Red Blood Count 3.26 L, Mean Corpuscular Volume 91.0, Mean Corpuscular Hemoglobin 30.8, Mean Corpuscular Hemoglobin Concent 33.9, Red Cell Distribution Width 13.2, Neutrophils (%) (Auto) 59.8, Lymphocytes (%) (Auto) 26.3, Monocytes (%) (Auto) 5.6 H, Eosinophils (%) (Auto) 4.8 H, Basophils (%) ( Auto) 0.4, Neutrophils # (Auto) 5.0, Lymphocytes # (Auto) 2.4, Monocytes # (Auto ) 0.5, Eosinophils # (Auto) 0.4, Basophils # (Auto) 0.0, Calcium Level 8.8 Microbiology Microbiology 12/24/16 Gastrointestinal Tract Panel (PCR) - Final, Complete 12/23/16 Stool Occult Blood (KEVIN) - Final, Complete JACLYN SAMANIEGO MD Dec 27, 2016 11:07
[2016-12-27] MEDS: WARFARIN SOD 5 MG TAB PO SCH (16:07)
[2016-12-27] MEDS: HEPARIN DRIP 25,000 UNITS in APPROPRIATE DILUENT 1 EA IV SCH (16:10)
[2016-12-27 22:00] VITALS: BP 140/64
[2016-12-27] MEDS: AMITRIPTYLINE 50 MG TAB PO SCH (22:03)
[2016-12-28] MEDS: LEVOTHYROXINE 75MCG TABLET (0.075MG) PO SCH (05:27)
[2016-12-28] MEDS: LEVOTHYROXINE 100MCG TABLET (0.1MG) PO SCH (05:27)
[2016-12-28 06:00] VITALS: BP 166/79
[2016-12-28 07:03] LABS: BASO % 0.6 % (0.0-1.0); EOS # 0.4 K/mm3 (0.0-0.50); EOS % 4.2 % (0.0-3.0); LARGE UNSTAINED CELL # 0.3 K/mm3 (0.0-0.4); LARGE UNSTAINED CELL % 2.9 % (0.0-4.0); LYMPH # 2.5 K/mm3 (1.5-4.5); LYMPH % 23.7 % (24.0-44.0); MEAN CORPUSCULAR HEMOGLOBIN 30.7 pg (27.0-33.0); MEAN CORPUSCULAR HGB CONC 33.1 g/dl (32.0-36.5); MEAN CORPUSCULAR VOLUME 92.8 fl (80.0-96.0); MONO # 0.6 K/mm3 (0.0-0.8); NEUTROPHILS # 5.8 K/mm3 (1.8-7.7); NEUTROPHILS % 62.5 % (36.0-66.0); PLATELET COUNT, AUTOMATED 531 k/mm3 (150-450); RED CELL DISTRIBUTION WIDTH 13.2 % (11.5-14.5); WHITE BLOOD COUNT 9.3 K/mm3 (4.0-10.0)
[2016-12-28 07:08] LABS: INR 2.09
[2016-12-28 07:12] LABS: ANION GAP 8 MEQ/L (8-16); BLOOD UREA NITROGEN 10 MG/DL (7-18); CALCIUM LEVEL 8.6 MG/DL (8.8-10.2); CARBON DIOXIDE LEVEL 29 MEQ/L (21-32); CHLORIDE LEVEL 104 MEQ/L (98-107); CREATININE FOR GFR 0.72 MG/DL (0.70-1.30); GLOMERULAR FILTRATION RATE > 60.0 (>42); GLUCOSE, FASTING 108 MG/DL (83-110); SODIUM LEVEL 141 MEQ/L (136-145)
[2016-12-28] MEDS ORDERED: PERC5TAB12 PO (07:20)
[2016-12-28] MEDS: hydroCHLOROthiazide 25 MG TAB PO SCH (08:31)
[2016-12-28] MEDS: MAGNESIUM OXIDE 400 MG TAB (MAG-OX) PO SCH (08:31)
[2016-12-28] MEDS: DOCUSATE SODIUM 100 MG CAP PO SCH (08:31)
[2016-12-28] MEDS: OMEPRAZOLE 20 MG CAP PO SCH (08:31)
[2016-12-28] MEDS: GABAPENTIN 300 MG CAP PO SCH (08:31)
[2016-12-28] MEDS: MULTIVITAMINS/MINERALS THERAP 1 TAB PO SCH (08:31)
[2016-12-28] MEDS: DULoxetine 30 MG CAP (CYMBALTA) PO SCH (08:31)
[2016-12-28] MEDS: SIMVASTATIN 40 MG TAB PO SCH (08:31)
[2016-12-28] MEDS: PERCOCET 5MG/325MG TAB PO PRN (08:32)
[2016-12-28] MEDS: MIRALAX *UNIT DOSE* 17GM PACKET PO SCH (08:32)
--- NOTE | 2016-12-28 10:08 | IPNPDOC ---
Subjective Date Seen The patient was seen on 12/28/16. Subjective Chief Complaint/HPI The patient is a 81-year-old male admitted with a reason for visit of Spinal Stenosis Lumbar. Events since last encounter No complaints, INR 2.0 today Objective Physical Examination General Exam: Positive: Alert, Cooperative, No Acute Distress Eye Exam: Positive: PERRLA, Conjunctiva & lids normal, EOMI, Negative: Sclera icteric ENT Exam: Positive: Atraumatic, Mucous membr. moist/pink, Pharynx Normal Neck Exam: Positive: Supple, Negative: JVD, thyromegaly Chest Exam: Positive: Clear to auscultation, Normal air movement Heart Exam: Positive: Rate Normal, Regular Rhythm, Normal S1, Normal S2, Negative: Murmurs, Rubs Abdomen Exam: Positive: Normal bowel sounds, Soft, Negative: Tenderness, Hepatospenomegaly Extremity Exam: Positive: Normal pulses, Negative: Clubbing, Cyanosis, Edema Skin Exam: Positive: Nl turgor and temperature, Negative: Rash, Breakdown Assessment /Plan Problems (1) Spinal stenosis Problem Text: s/p right unilateral laminectomy L3, L4-L5 with posterior fusion in situ on 12/18 surgery was uneventful. pain control and dvt prophylasix as per orthopedics. (2) History of pulmonary embolism Status: Chronic Problem Text: Had PE in 2008 , Had factor V leiden heterozygous. On iv heparin and coumadin bridging . INr 2.0 today . will give 5 mg coumadin today then go back to home regimen. (3) Obesity Status: Chronic (4) GERD (gastroesophageal reflux disease) Status: Chronic (5) Hyperlipidemia Status: Chronic (6) Hypertension Status: Chronic (7) Hypothyroid Status: Chronic Plan/VTE VTE Prophylaxis Ordered?: Yes VS, I&O, 24H, Fishbone Vital Signs/I&O Vital Signs Date Time Temp Pulse Resp B/P (MAP) Pulse Ox O2 Delivery O2 Flow Rate FiO2 12/28/16 10:00 16 12/28/16 06:00 99.1 63 166/79 (108) 95 Room Air I&O- Last 24 Hours up to 6 AM 12/28/16 06:00 Intake Total 1428 ml Output Total 425 ml Balance 1003 ml Laboratory Data 24H LABS Laboratory Tests 2 12/28/16 06:40: White Blood Count 9.3, Red Blood Count 3.10L, Hemoglobin 9.5L, Hematocrit 28.7L , Mean Corpuscular Volume 92.8, Mean Corpuscular Hemoglobin 30.7, Mean Corpuscular Hemoglobin Concent 33.1, Red Cell Distribution Width 13.2, Platelet Count 531H, Neutrophils (%) (Auto) 62.5, Lymphocytes (%) (Auto) 23.7L, Monocytes (%) (Auto) 6.0H, Eosinophils (%) (Auto) 4.2H, Basophils (%) (Auto) 0.6 , Neutrophils # (Auto) 5.8, Lymphocytes # (Auto) 2.5, Monocytes # (Auto) 0.6, Eosinophils # (Auto) 0.4, Basophils # (Auto) 0.0, Large Unclassified Cells % 2.9 , Large Unclassified Cells # 0.3, Prothrombin Time 24.2H, Prothromb Time International Ratio 2.09, Anion Gap 8, Glomerular Filtration Rate > 60.0, Blood Urea Nitrogen 10, Creatinine 0.72, Sodium Level 141, Potassium Level 4.0, Chloride Level 104, Carbon Dioxide Level 29, Calcium Level 8.6L CBC/BMP Laboratory Tests 12/28/16 06:40 Red Blood Count 3.10 L, Mean Corpuscular Volume 92.8, Mean Corpuscular Hemoglobin 30.7, Mean Corpuscular Hemoglobin Concent 33.1, Red Cell Distribution Width 13.2, Neutrophils (%) (Auto) 62.5, Lymphocytes (%) (Auto) 23.7 L, Monocytes (%) (Auto) 6.0 H, Eosinophils (%) (Auto) 4.2 H, Basophils (%) (Auto) 0.6, Neutrophils # (Auto) 5.8, Lymphocytes # (Auto) 2.5, Monocytes # ( Auto) 0.6, Eosinophils # (Auto) 0.4, Basophils # (Auto) 0.0, Calcium Level 8.6 L Microbiology Microbiology 12/24/16 Gastrointestinal Tract Panel (PCR) - Final, Complete 12/23/16 Stool Occult Blood (KEVIN) - Final, Complete JACLYN SAMANIEGO MD Dec 28, 2016 10:08
--- NOTE | 2017-01-01 12:08 | DSES ---
DATE OF ADMISSION: 12/18/2016 DATE OF DISCHARGE: 12/28/2016 ATTENDING PHYSICIAN: Dr. Dony Jean ADMITTING DIAGNOSIS: Symptomatic spinal stenosis, spondylolisthesis and bilateral lower extremity symptoms. OTHER DIAGNOSES: 1. Hypertension. 2. Impaired fasting glucose. 3. Factor V Leiden with history of pulmonary embolism. 4. Hypothyroid. 5. Elevated cholesterol. 6. Insomnia. 7. Seasonal allergies. DISCHARGE DIAGNOSIS: Symptomatic spinal stenosis with right greater than left lower extremity radiculopathy status post right unilateral laminectomy at L3, L4 and L5 with posterior fusion in situ. HISTORY: Patient is a 81-year-old male with progressively worsening low back pain with right greater than left lower extremity symptoms. He failed to improve with conservative measures, so he consented for an elective right unilateral laminectomy at L3, L4 and L5 with a posterior fusion in situ with Dr. Jean. OPERATION PERFORMED: Right unilateral laminectomy at L3, L4 and L5 with posterior fusion in situ. HOSPITAL COURSE: The patient underwent a right unilateral laminectomy at L3, L4 and L5 with posterior fusion in situ. Surgery was without complication. During his hospital stay, he did develop urinary frequency and loose stools, but he had negative labs and his symptoms resolved within 1 day. Otherwise, his hospital course was without complication. He was discharged on Coumadin with instructions to use his thromboembolic deterrent stockings to prevent deep venous thrombosis. He will resume his preoperative medications and diet per his medical management team. We will have patient followup in our office in approximately 3 days or sooner if there is any increase in pain, numbness, tingling or weakness in his extremities, fevers, chills, redness or drainage at the incision site. We did encourage him to followup sooner for any other concerns. Please see medical record for additional details. [facility]
== END 2016-12-28 11:50 | disposition home health service (06) | DRG 460 ==
LOC: M OR 10:04 → M MS5PR 20:40
PROVIDERS: ADMIT Orthopaedic Surgery; ATTEND Orthopaedic Surgery
PROC: 00NY0ZZ Release Lumbar Spinal Cord, Open Approach (ICD-10-PCS; 2016-12-18)
PROC: 0SG1071 Fusion of 2 or more Lumbar Vertebral Joints with Autologous Tissue Substitute, Posterior Approach, Posterior Column, Open Approach (ICD-10-PCS; principal; 2016-12-18 11:45)
DX: M48.06 Spinal stenosis, lumbar region (principal); I10 Essential (primary) hypertension; R73.02 Impaired glucose tolerance (oral); E03.9 Hypothyroidism, unspecified; K21.9 Gastro-esophageal reflux disease without esophagitis; E78.5 Hyperlipidemia, unspecified; M43.16 Spondylolisthesis, lumbar region; E78.00 Pure hypercholesterolemia, unspecified; G47.00 Insomnia, unspecified; J30.2 Other seasonal allergic rhinitis; Z86.711 Personal history of pulmonary embolism; Z88.0 Allergy status to penicillin; Z79.01 Long term (current) use of anticoagulants; Z79.899 Other long term (current) drug therapy; E66.9 Obesity, unspecified

== ENCOUNTER → 2017-08-28 | Outpatient (CLI) | payer MEDICARE | LOC: M LRY 10:08 | DX: I27.20 Pulmonary hypertension, unspecified (principal); I70.0 Atherosclerosis of aorta; R06.02 Shortness of breath | CPT/HCPCS: 71046; G0463 ==

== ENCOUNTER → 2017-09-01 | Outpatient (REF) | payer MEDICARE ==
[2017-09-01 11:45] LABS: HEMATOCRIT 36.3 % (42.0-52.0); HEMOGLOBIN 11.9 g/dl (13.5-17.5); MEAN CORPUSCULAR HEMOGLOBIN 27.7 pg (27.0-33.0); MEAN CORPUSCULAR HGB CONC 32.8 g/dl (32.0-36.5); MEAN CORPUSCULAR VOLUME 84.4 fl (80.0-96.0); PLATELET COUNT, AUTOMATED 304 10^3/uL (150-450); WHITE BLOOD COUNT 10.2 10^3/uL (4.0-10.0)
[2017-09-01 12:29] LABS: ALBUMIN 3.7 GM/DL (3.2-5.2); ALBUMIN/GLOBULIN RATIO 1.06 (1.00-1.93); ALKALINE PHOSPHATASE 95 U/L (45-117); ALT/SGPT 22 U/L (12-78); ANION GAP 8 MEQ/L (8-16); AST/SGOT 23 U/L (7-37); BILIRUBIN,TOTAL 0.4 MG/DL (0.2-1.0); BLOOD UREA NITROGEN 16 MG/DL (7-18); CALCIUM LEVEL 8.7 MG/DL (8.8-10.2); CARBON DIOXIDE LEVEL 29 MEQ/L (21-32); CHLORIDE LEVEL 102 MEQ/L (98-107); CREATININE FOR GFR 0.81 MG/DL (0.70-1.30); GLOMERULAR FILTRATION RATE > 60.0 (>35); GLUCOSE, FASTING 99 MG/DL (70-100); POTASSIUM SERUM 3.9 MEQ/L (3.5-5.1); SODIUM LEVEL 139 MEQ/L (136-145); TOTAL PROTEIN 7.2 GM/DL (6.4-8.2)
[2017-09-01 14:25] LABS: ESTIMATED AVERAGE GLUCOSE 137 MG/DL (60-110); HEMOGLOBIN A1c 6.4 %
== END ==
LOC: M SFHCPLAZ 10:01
DX: R73.01 Impaired fasting glucose (principal); Z79.01 Long term (current) use of anticoagulants; I10 Essential (primary) hypertension; E03.9 Hypothyroidism, unspecified
CPT/HCPCS: 84443

== ENCOUNTER → 2018-03-08 | Outpatient (REF) | payer MEDICARE ==
[2018-03-08 12:04] LABS: HEMATOCRIT 37.8 % (42.0-52.0); HEMOGLOBIN 12.5 g/dl (13.5-17.5); MEAN CORPUSCULAR HGB CONC 33.1 g/dl (32.0-36.5); MEAN CORPUSCULAR VOLUME 87.7 fl (80.0-96.0); PLATELET COUNT, AUTOMATED 297 10^3/uL (150-450); RED BLOOD COUNT 4.31 10^6/uL (4.30-6.10); RED CELL DISTRIBUTION WIDTH 14.2 % (11.5-14.5); WHITE BLOOD COUNT 6.4 10^3/uL (4.0-10.0)
[2018-03-08 13:04] LABS: ALBUMIN 3.5 GM/DL (3.2-5.2); ALBUMIN/GLOBULIN RATIO 1.03 (1.00-1.93); ALKALINE PHOSPHATASE 101 U/L (45-117); ALT/SGPT 34 U/L (12-78); ANION GAP 8 MEQ/L (8-16); AST/SGOT 36 U/L (7-37); BILIRUBIN,TOTAL 0.3 MG/DL (0.2-1.0); BLOOD UREA NITROGEN 17 MG/DL (7-18); CALCIUM LEVEL 8.7 MG/DL (8.8-10.2); CARBON DIOXIDE LEVEL 28 MEQ/L (21-32); CHLORIDE LEVEL 103 MEQ/L (98-107); CHOLESTEROL LEVEL 167 MG/DL (<200); CHOLESTEROL RISK RATIO 2.982 (<5); CREATININE FOR GFR 0.97 MG/DL (0.70-1.30); FERRITIN 20 NG/ML (26-388); GLOMERULAR FILTRATION RATE > 60.0 (>35); GLUCOSE, FASTING 121 MG/DL (70-100); HDL CHOLESTEROL 56 MG/DL (>40); IRON (FE) 46 UG/DL (65-175); LDL CHOLESTEROL 79 MG/DL (<100); MAGNESIUM LEVEL 1.7 MG/DL (1.8-2.4); NON-HDL-C 111 MG/DL; PERCENT SATURATION 12.7 % (19.7-50.0); POTASSIUM SERUM 4.2 MEQ/L (3.5-5.1); SODIUM LEVEL 139 MEQ/L (136-145); TOTAL IRON BINDING CAPACITY 363 UG/DL (250-450); TOTAL PROTEIN 6.9 GM/DL (6.4-8.2); TRIGLYCERIDES LEVEL 161 MG/DL (<150)
[2018-03-08 14:24] LABS: FOLATE 14.1 NG/ML; VITAMIN B12 LEVEL 332 PG/ML
[2018-03-08 14:33] LABS: ESTIMATED AVERAGE GLUCOSE 143 MG/DL (60-110); HEMOGLOBIN A1c 6.6 %
== END ==
LOC: M SFHCPLAZ 09:57
DX: D64.9 Anemia, unspecified (principal); I10 Essential (primary) hypertension; R73.01 Impaired fasting glucose; E78.00 Pure hypercholesterolemia, unspecified; E03.9 Hypothyroidism, unspecified
CPT/HCPCS: 82746

== ENCOUNTER → 2018-08-12 | Outpatient (REF) | payer MEDICARE ==
[~2018-08-12] MED LIST changes: -/ESCI20TA OR; -/ESOM40CA OR; -/WARF5TA OR; +COUM1TAB17 OR; -ENOX40SY; +LEXA1TAB2 OR; -LIDOCAINE 2% INJ 100 MG/5 ML SDV (FOR ANES.) As Ordered ONE; +LOVE1INJ; -MIDAZOLAM INJ 2 MG/2 ML VIAL (J2250) As Ordered ONE; +NEXI1CAP3 OR; +PERC5TAB12 PO; -PROPOFOL 200 MG/20 ML VIAL As Ordered ONE; -ROCURONIUM BROMIDE 50 MG/5 ML VIAL/SYRINGE As Ordered ONE; -VANCOMYCIN HCL 1,000 MG, VIAL MATE ADAPTER 1 EACH in D5W 250 ML IV ONE; -fentaNYL 250 MCG/5 ML INJECTION (J3010) As Ordered ONE
== END ==
LOC: M SFHCPLAZ 15:54
PROVIDERS: ATTEND Dermatology
DX: C44.219 Basal cell carcinoma of skin of left ear and external auricular canal (principal); L82.1 Other seborrheic keratosis

== ENCOUNTER → 2018-10-14 | Outpatient (REF) | payer MEDICARE ==
[~2018-10-14] MED LIST changes: +PRED20TA PO
[2018-10-14 15:06] LABS: HEMATOCRIT 38.9 % (42.0-52.0); HEMOGLOBIN 12.7 g/dl (13.5-17.5); MEAN CORPUSCULAR HEMOGLOBIN 29.3 pg (27.0-33.0); MEAN CORPUSCULAR HGB CONC 32.6 g/dl (32.0-36.5); MEAN CORPUSCULAR VOLUME 89.8 fl (80.0-96.0); PLATELET COUNT, AUTOMATED 261 10^3/uL (150-450); RED BLOOD COUNT 4.33 10^6/uL (4.30-6.10); WHITE BLOOD COUNT 7.4 10^3/uL (4.0-10.0)
[2018-10-14 15:19] LABS: ALBUMIN 3.4 GM/DL (3.2-5.2); ALT/SGPT 31 U/L (12-78); BILIRUBIN,TOTAL 0.3 MG/DL (0.2-1.0); BLOOD UREA NITROGEN 20 MG/DL (7-18); CALCIUM LEVEL 9.1 MG/DL (8.8-10.2); CARBON DIOXIDE LEVEL 31 MEQ/L (21-32); CHLORIDE LEVEL 104 MEQ/L (98-107); CHOLESTEROL LEVEL 168 MG/DL (<200); CHOLESTEROL RISK RATIO 2.507 (<5); CREATININE FOR GFR 0.86 MG/DL (0.70-1.30); FERRITIN 24 NG/ML (26-388); GLOMERULAR FILTRATION RATE > 60.0 (>35); GLUCOSE, FASTING 99 MG/DL (70-100); HDL CHOLESTEROL 67 MG/DL (>40); IRON (FE) 69 UG/DL (65-175); LDL CHOLESTEROL 84 MG/DL (<100); MAGNESIUM LEVEL 1.9 MG/DL (1.8-2.4); NON-HDL-C 101 MG/DL; POTASSIUM SERUM 4.5 MEQ/L (3.5-5.1); SODIUM LEVEL 139 MEQ/L (136-145); TOTAL IRON BINDING CAPACITY 383 UG/DL (250-450); TOTAL PROTEIN 7.1 GM/DL (6.4-8.2); TRIGLYCERIDES LEVEL 86 MG/DL (<150)
[2018-10-14 15:24] LABS: HEMOGLOBIN A1c 6.7 %
[2018-10-14 15:44] LABS: MALB URINE SIEMENS 14.9 MG/L; MAU/CREAT RATIO 11.3 MCG/MG (0.0-30.0)
== END ==
LOC: M SFHCLERA 10:31
PROVIDERS: ATTEND Internal Medicine
DX: D64.9 Anemia, unspecified (principal); I10 Essential (primary) hypertension; R73.01 Impaired fasting glucose; E78.00 Pure hypercholesterolemia, unspecified; E03.9 Hypothyroidism, unspecified

== ENCOUNTER 2018-10-17 12:34 | Emergency (ER) | payer MEDICARE ==
[~2018-10-17] VITALS: Ht 177.8 cm; Wt 113.6 kg
[~2018-10-17 12:34] MED LIST changes: -PRED20TA PO
--- NOTE | 2018-10-17 13:49 | REP ---
Cervical spine seven views: There are no comparisons. Vertebral body heights and alignment are normal. There is degenerative disc disease throughout the cervical spine. The facets are normally aligned. There is facet osteoarthritis throughout the cervical spine. The prevertebral soft tissues are unremarkable. There is no listhesis on flexion or extension. The odontoid view is unremarkable. There are surgical clips in the soft tissues of the neck on the right. There is bilateral bony foraminal encroachment, likely secondary to the degenerative disc disease. 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 Multilevel bilateral foraminal encroachment, likely secondary to the degenerative disc disease and facet osteoarthritis. No compression deformity or listhesis. There is a degenerative calcification in the ligamentum nuchae. Electronically Signed by Ti Beal MD 10/17/2018 01:41 P
[2018-10-17 14:29] VITALS: BP 146/70
[2018-10-17] MEDS ORDERED: PRED20TA PO (14:33)
[2018-10-17] MEDS ORDERED: predniSONE 20 MG TAB PO ONE (14:45)
== END 2018-10-17 14:41 | disposition home or self-care (01) ==
LOC: M ED 12:34
DX: S13.4XXA Sprain of ligaments of cervical spine, initial encounter (principal); M50.30 Other cervical disc degeneration, unspecified cervical region; X58.XXXA Exposure to other specified factors, initial encounter; Y92.9 Unspecified place or not applicable; Y93.9 Activity, unspecified; Y99.9 Unspecified external cause status; I10 Essential (primary) hypertension; E78.00 Pure hypercholesterolemia, unspecified; Z87.01 Personal history of pneumonia (recurrent); Z86.711 Personal history of pulmonary embolism; K21.9 Gastro-esophageal reflux disease without esophagitis; M54.9 Dorsalgia, unspecified; E03.9 Hypothyroidism, unspecified; F32.9 Major depressive disorder, single episode, unspecified; Z79.01 Long term (current) use of anticoagulants; Z79.899 Other long term (current) drug therapy; Z88.0 Allergy status to penicillin; Z88.8 Allergy status to other drugs, medicaments and biological substances

== ENCOUNTER → 2018-12-10 | Outpatient (REF) | payer MEDICARE ==
[~2018-12-10] MED LIST changes: +OMEP1CAP73 PO; -OMEP20CA3 PO; +PRED20TA PO; -SIMV40TA2 PO; +SIMV40TA20 PO
== END ==
LOC: M SFHCPLAZ 16:49
PROVIDERS: ATTEND Dermatology
DX: C43.4 Malignant melanoma of scalp and neck (principal)

== ENCOUNTER 2019-01-19 11:42 | Emergency (ER) | payer MEDICARE ==
[~2019-01-19] VITALS: Ht 177.8 cm; Wt 111.4 kg
[2019-01-19 12:14] LABS: HEMATOCRIT 38.6 % (42.0-52.0); HEMOGLOBIN 13.2 g/dl (13.5-17.5); MEAN CORPUSCULAR HEMOGLOBIN 30.1 pg (27.0-33.0); MEAN CORPUSCULAR HGB CONC 34.2 g/dl (32.0-36.5); MEAN CORPUSCULAR VOLUME 88.1 fl (80.0-96.0); PLATELET COUNT, AUTOMATED 217 10^3/uL (150-450); RED BLOOD COUNT 4.38 10^6/uL (4.30-6.10); WHITE BLOOD COUNT 5.8 10^3/uL (4.0-10.0)
[2019-01-19 12:25] LABS: INR 2.57; PROTHROMBIN TIME 27.5 SECONDS (11.8-14.0)
[2019-01-19 13:01] VITALS: BP 120/57
== END 2019-01-19 13:19 | disposition home or self-care (01) ==
LOC: EDBD 11:42 → M ED 11:42
DX: R04.0 Epistaxis (principal); I10 Essential (primary) hypertension; E07.9 Disorder of thyroid, unspecified; K21.9 Gastro-esophageal reflux disease without esophagitis; Z79.899 Other long term (current) drug therapy; Z79.01 Long term (current) use of anticoagulants; Z88.0 Allergy status to penicillin; Z88.8 Allergy status to other drugs, medicaments and biological substances

== ENCOUNTER → 2019-01-21 | Outpatient (REF) | payer MEDICARE ==
[~2019-01-21] MED LIST changes: -OMEP1CAP73 PO; +OMEP20CA4 PO; +SIMV40TA2 PO; -SIMV40TA20 PO
[2019-01-21 18:48] LABS: BASO # 0.1 10^3/uL (0.0-0.2); BASO % 0.8 % (0.0-1.0); EOS # 0.2 10^3/uL (0.0-0.5); EOS % 3.6 % (0.0-3.0); HEMATOCRIT 40.1 % (42.0-52.0); HEMOGLOBIN 13.2 g/dl (13.5-17.5); LYMPH # 2.3 10^3/uL (1.5-5.0); MEAN CORPUSCULAR HEMOGLOBIN 30.3 pg (27.0-33.0); MEAN CORPUSCULAR HGB CONC 32.9 g/dl (32.0-36.5); MEAN CORPUSCULAR VOLUME 92.2 fl (80.0-96.0); MONO # 0.7 10^3/uL (0.0-0.8); MONO % 10.7 % (0.0-5.0); NEUTROPHILS # 3.2 10^3/uL (1.5-8.5); NEUTROPHILS % 49.6 % (36.0-66.0); PLATELET COUNT, AUTOMATED 248 10^3/uL (150-450); RED BLOOD COUNT 4.35 10^6/uL (4.30-6.10); WHITE BLOOD COUNT 6.4 10^3/uL (4.0-10.0)
[2019-01-21 19:13] LABS: ALBUMIN 3.9 GM/DL (3.2-5.2); ALT/SGPT 29 U/L (12-78); BILIRUBIN,TOTAL 0.5 MG/DL (0.2-1.0); BLOOD UREA NITROGEN 14 MG/DL (7-18); CARBON DIOXIDE LEVEL 33 MEQ/L (21-32); CHLORIDE LEVEL 101 MEQ/L (98-107); CREATININE FOR GFR 1.03 MG/DL (0.70-1.30); GLOMERULAR FILTRATION RATE > 60.0 (>35); GLUCOSE, FASTING 102 MG/DL (70-100); POTASSIUM SERUM 4.2 MEQ/L (3.5-5.1); SODIUM LEVEL 139 MEQ/L (136-145)
[2019-01-21 19:18] LABS: INR 2.75; PARTIAL THROMBOPLASTIN TIME 38.2 SECONDS (25.0-38.4)
== END ==
LOC: M SFHCPLAZ 12:50
PROVIDERS: ATTEND Family Medicine
DX: I10 Essential (primary) hypertension (principal); Z86.711 Personal history of pulmonary embolism
CPT/HCPCS: 36415; 80053; 85025; 85610; 85730; 93005; G0463

== ENCOUNTER 2019-01-26 07:55 | Day surgery (SDC) | payer MEDICARE ==
[~2019-01-26] VITALS: Ht 177.8 cm; Wt 111.1 kg
[~2019-01-26 07:55] MED LIST changes: +OMEP1CAP73 PO; -OMEP20CA4 PO; -SIMV40TA2 PO; +SIMV40TA20 PO
[2019-01-26] MEDS ORDERED: LIDOCAINE 2% INJ 100 MG/5 ML SDV (FOR ANES.) As Ordered ONE (08:03)
[2019-01-26] MEDS ORDERED: propofoL 200 MG/20 ML VIAL As Ordered ONE (08:03)
[2019-01-26] MEDS ORDERED: fentaNYL 100 MCG/2 ML INJECTION (J3010) As Ordered ONE ×2 (08:03→13:07)
[2019-01-26] MEDS ORDERED: dexameTHASONE 4 MG/ML 1ML VIAL (J1100) As Ordered ONE (08:03)
[2019-01-26] MEDS ORDERED: ONDANSETRON 4MG/2ML VIAL (J2405) As Ordered ONE ×2 (08:03→13:08)
[2019-01-26 08:39] LABS: INR 1.41; PROTHROMBIN TIME 16.9 SECONDS (11.8-14.0)
[2019-01-26] MEDS ORDERED: LIDOCAINE W/EPINEPHRINE 1% 20ML VIAL As Ordered ONE (09:00)
[2019-01-26] MEDS ORDERED: BACITRACIN OINT 30GM As Ordered ONE (09:01)
[2019-01-26] MEDS ORDERED: ROCURONIUM BROMIDE 50 MG/5 ML VIAL As Ordered ONE (09:24)
[2019-01-26] MEDS ORDERED: METHYLENE BLUE 0.5% (5MG/ML) 10 ML AMP (PROVAYBLUE)(Q9968 PER 1MG) As Ordered ONE (11:46)
[2019-01-26] MEDS ORDERED: PHENYLephrine HCL 500 MCG/5 ML (100MCG/ML) SYRINGE (J2370) As Ordered ONE ×2 (11:50→12:13)
[2019-01-26] MEDS ORDERED: VASOPRESSIN INJ 20 UNITS/ML VIAL As Ordered ONE (12:19)
[2019-01-26] MEDS ORDERED: SUGAMMADEX SODIUM 500 MG/5 ML VIAL (BRIDION) As Ordered ONE (12:31)
[2019-01-26] MEDS ORDERED: oxyCODONE 5MG TAB As Ordered ONE ×2 (13:07→13:33)
[2019-01-26] MEDS: fentaNYL 100 MCG/2 ML INJECTION (J3010) IV PRN ×4 (13:10→13:32)
[2019-01-26] MEDS: oxyCODONE 5MG TAB PO PRN ×2 (13:10→13:37)
[2019-01-26] MEDS ORDERED: LR 1,000 ML IV SCH ×2 (13:15→14:16)
[2019-01-26] MEDS ORDERED: ONDANSETRON 4MG/2ML VIAL (J2405) IV PRN (13:15)
--- NOTE | 2019-01-26 13:25 | RO ---
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 OPERATIVE PROCEDURE: Excision lesion right postauricular area and reconstruction. FINDINGS: The patient was very vascular in the subcutaneous area. I did use cautery and suction cautery in order to control bleeding. SURGEON: Pérez Mckeon MD METAL BALER: ANESTHESIA: DESCRIPTION OF PROCEDURE: Under general anesthesia with the patient intubated, the patient draped in the usual manner. I infiltrated the area with lidocaine with epinephrine. I made a skin incision, divided subcutaneous tissues. There was a lot of bleeding. I cut around the lesion. I then controlled the bleeding the best I could. I then dissected posteriorly, superiorly, and anteriorly. I dissected off of the conchal bulla area. This was done using cautery. Once this was done, then because of the bleeding, it is decided not to do major reconstruction. So, it easily approximated. So, I used interrupted 2-0 Vicryl and then for the skin 3-0 Prolene. Probably 100 mL estimated blood loss. The patient tolerated the procedure well. The patient was extubated and transferred to the recovery room in excellent condition after the wound was dressed.
[2019-01-26] MEDS ORDERED: ePHEDrine SULFATE 25 MG/5 ML(5MG/ML) SYRINGE As Ordered ONE (13:44)
[2019-01-26] MEDS ORDERED: ACETAMINOPH W/CODEINE #3 TAB UD PO PRN (14:16)
[2019-01-26 14:45] VITALS: BP 128/70
== END 2019-01-26 14:48 | disposition home or self-care (01) ==
LOC: M SDC 07:55
PROVIDERS: ATTEND Otolaryngology
DX: C43.21 Malignant melanoma of right ear and external auricular canal (principal); I10 Essential (primary) hypertension; E03.9 Hypothyroidism, unspecified; E78.00 Pure hypercholesterolemia, unspecified; K21.9 Gastro-esophageal reflux disease without esophagitis; R73.01 Impaired fasting glucose; F32.9 Major depressive disorder, single episode, unspecified; G47.00 Insomnia, unspecified; Z86.711 Personal history of pulmonary embolism; Z79.01 Long term (current) use of anticoagulants; Z79.899 Other long term (current) drug therapy; Z92.3 Personal history of irradiation; D64.9 Anemia, unspecified; Z88.0 Allergy status to penicillin; Z88.8 Allergy status to other drugs, medicaments and biological substances
CPT/HCPCS: 11644; 36415; 85610; 88307; J1100; J2370; J2405; J3010; Q9968

== ENCOUNTER → 2019-08-30 | Outpatient (REF) | payer MEDICARE ==
[2019-08-30 13:59] LABS: BASO % 0.6 % (0.0-1.0); EOS # 0.2 10^3/uL (0.0-0.5); EOS % 2.5 % (0.0-3.0); HEMATOCRIT 37.8 % (42.0-52.0); HEMOGLOBIN 12.2 g/dl (13.5-17.5); LYMPH # 1.8 10^3/uL (1.5-5.0); LYMPH % 25.9 % (24.0-44.0); MEAN CORPUSCULAR HEMOGLOBIN 27.7 pg (27.0-33.0); MEAN CORPUSCULAR HGB CONC 32.3 g/dl (32.0-36.5); MEAN CORPUSCULAR VOLUME 85.7 fl (80.0-96.0); MONO # 0.7 10^3/uL (0.0-0.8); MONO % 10.5 % (0.0-5.0); NEUTROPHILS # 4.1 10^3/uL (1.5-8.5); NEUTROPHILS % 60.2 % (36.0-66.0); PLATELET COUNT, AUTOMATED 287 10^3/uL (150-450); RED BLOOD COUNT 4.41 10^6/uL (4.30-6.10); WHITE BLOOD COUNT 6.8 10^3/uL (4.0-10.0)
[2019-08-30 14:27] LABS: BLOOD UREA NITROGEN 15 MG/DL (7-18); GLUCOSE, FASTING 134 MG/DL (70-100)
[2019-08-30 14:28] LABS: ALBUMIN 3.8 GM/DL (3.2-5.2); ALT/SGPT 29 U/L (12-78); BILIRUBIN,TOTAL 0.3 MG/DL (0.2-1.0); CALCIUM LEVEL 8.7 MG/DL (8.8-10.2); CARBON DIOXIDE LEVEL 32 MEQ/L (21-32); CHLORIDE LEVEL 103 MEQ/L (98-107); CHOLESTEROL LEVEL 171 MG/DL (<200); CHOLESTEROL RISK RATIO 2.552 (<5); GLOMERULAR FILTRATION RATE > 60.0 (>35); HDL CHOLESTEROL 67 MG/DL (>40); LDL CHOLESTEROL 82 MG/DL (<100); MAGNESIUM LEVEL 1.7 MG/DL (1.8-2.4); NON-HDL-C 104 MG/DL; POTASSIUM SERUM 4.5 MEQ/L (3.5-5.1); SODIUM LEVEL 139 MEQ/L (136-145); TOTAL PROTEIN 7.1 GM/DL (6.4-8.2); TRIGLYCERIDES LEVEL 111 MG/DL (<150)
[2019-08-30 14:35] LABS: MALB URINE SIEMENS 28.8 MG/L; MAU/CREAT RATIO 17.3 MCG/MG (0.0-30.0)
[2019-08-30 14:43] LABS: HEMOGLOBIN A1c 6.9 %
== END ==
LOC: M PLALAB 09:22
PROVIDERS: ATTEND Internal Medicine
DX: D64.9 Anemia, unspecified (principal); I10 Essential (primary) hypertension; R73.01 Impaired fasting glucose; E78.00 Pure hypercholesterolemia, unspecified

== ENCOUNTER → 2020-02-07 | Outpatient (CLI) | payer MEDICARE ==
--- NOTE | 2020-02-07 12:59 | REPVR ---
PROCEDURE INFORMATION: Exam: MR Lumbar Spine Without Contrast. Exam date and time: 02/07/2020 12:37 PM Age: 84 years old Clinical indication: Other: Radiculopathy lumbar region TECHNIQUE: Imaging protocol: Multiplanar magnetic resonance images of the lumbar spine without intravenous contrast. COMPARISON: MRI-Spine, L.S. without con 05/28/2016 1:22 PM FINDINGS: Vertebrae: There is accentuation of the normal lumbar lordosis. There is 3 mm of grade 1 retrolisthesis of L2 with respect to L3 and L3 with respect to L4. Normal vertebral body alignment is otherwise preserved. Vertebral body heights are within normal limits. There is moderate intervertebral disc space loss at L2/3 and L3/4. Spinal cord: The conus medullaris terminates at L1. The patient has a congenitally narrowed spinal canal. L1-L2: There is shallow disc bulging asymmetric to the right. There is [id number] facet hypertrophy. There is mild left neural foraminal narrowing. L2-L3: There is diffuse disc bulging/uncovering related to listhesis. There is severe facet and ligamentous hypertrophy. There is moderate left lateral recess stenosis. There is moderate canal stenosis. There is [id number] bilateral neural foraminal narrowing. L3-L4: There are right hemilaminectomy changes. There is diffuse disc bulging/uncovering related to listhesis. There is moderate facet hypertrophy. There is severe right and moderate left neural foraminal narrowing. L4-L5: There are right hemilaminectomy changes. There is disc diffuse disc bulging. There is moderate facet hypertrophy. There is [id number] bilateral neural foraminal narrowing. L5-S1: There is diffuse disc bulging. There is severe facet hypertrophy. There is severe right neural foraminal narrowing. Soft tissues: Unremarkable. IMPRESSION: Degenerative disc disease and spondylosis, with multilevel moderate to severe neural foraminal narrowing. Electronically signed by: Kait Browning On 02/07/2020 12:59:21 PM
== END ==
LOC: M RAD 11:29
PROVIDERS: ATTEND Orthopaedic Surgery
DX: M54.16 Radiculopathy, lumbar region (principal); M51.26 Other intervertebral disc displacement, lumbar region; M48.061 Spinal stenosis, lumbar region without neurogenic claudication; M51.36 Other intervertebral disc degeneration, lumbar region; M51.27 Other intervertebral disc displacement, lumbosacral region

== ENCOUNTER → 2020-02-08 | Outpatient (REF) | payer MEDICARE ==
[2020-02-08 16:29] LABS: HEMATOCRIT 39.5 % (42.0-52.0); HEMOGLOBIN 12.9 g/dl (13.5-17.5); MEAN CORPUSCULAR HEMOGLOBIN 28.4 pg (27.0-33.0); MEAN CORPUSCULAR HGB CONC 32.7 g/dl (32.0-36.5); MEAN CORPUSCULAR VOLUME 86.8 fl (80.0-96.0); PLATELET COUNT, AUTOMATED 266 10^3/uL (150-450); RED BLOOD COUNT 4.55 10^6/uL (4.30-6.10); WHITE BLOOD COUNT 6.4 10^3/uL (4.0-10.0)
[2020-02-08 16:45] LABS: HEMOGLOBIN A1c 6.4 %
[2020-02-08 17:03] LABS: ALBUMIN 3.7 GM/DL (3.2-5.2); ALT/SGPT 31 U/L (12-78); BILIRUBIN,TOTAL 0.3 MG/DL (0.2-1.0); BLOOD UREA NITROGEN 18 MG/DL (7-18); CALCIUM LEVEL 9.1 MG/DL (8.8-10.2); CARBON DIOXIDE LEVEL 32 MEQ/L (21-32); CHLORIDE LEVEL 101 MEQ/L (98-107); CREATININE FOR GFR 0.89 MG/DL (0.70-1.30); GLOMERULAR FILTRATION RATE > 60.0 (>35); GLUCOSE, FASTING 141 MG/DL (70-100); MALB URINE SIEMENS 15.2 MG/L; MAU/CREAT RATIO 12.2 MCG/MG (0.0-30.0); POTASSIUM SERUM 4.2 MEQ/L (3.5-5.1); SODIUM LEVEL 137 MEQ/L (136-145); TOTAL PROTEIN 7.3 GM/DL (6.4-8.2)
== END ==
LOC: M PLALAB 13:06
PROVIDERS: ATTEND Internal Medicine
DX: D64.9 Anemia, unspecified (principal); I10 Essential (primary) hypertension; R73.01 Impaired fasting glucose; E03.9 Hypothyroidism, unspecified

== ENCOUNTER → 2020-07-09 | Outpatient (REF) | payer MEDICARE ==
[~2020-07-09] MED LIST changes: +HYDR-3490 PO; -HYDR25TAB PO
[2020-07-09 12:54] LABS: BASO # 0.1 10^3/uL (0.0-0.2); EOS # 0.2 10^3/uL (0.0-0.5); HEMATOCRIT 40.7 % (42.0-52.0); HEMOGLOBIN 13.4 g/dl (13.5-17.5); LYMPH % 27.6 % (24.0-44.0); MEAN CORPUSCULAR HEMOGLOBIN 29.2 pg (27.0-33.0); MEAN CORPUSCULAR HGB CONC 32.9 g/dl (32.0-36.5); MEAN CORPUSCULAR VOLUME 88.7 fl (80.0-96.0); MONO # 0.7 10^3/uL (0.0-0.8); MONO % 9.1 % (2.0-8.0); NEUTROPHILS # 4.3 10^3/uL (1.5-8.5); NEUTROPHILS % 58.9 % (36.0-66.0); PLATELET COUNT, AUTOMATED 261 10^3/uL (150-450); RED BLOOD COUNT 4.59 10^6/uL (4.30-6.10); WHITE BLOOD COUNT 7.3 10^3/uL (4.0-10.0)
[2020-07-09 13:24] LABS: ALBUMIN 3.8 GM/DL (3.2-5.2); ALT/SGPT 26 U/L (12-78); BILIRUBIN,TOTAL 0.3 MG/DL (0.2-1.0); BLOOD UREA NITROGEN 15 MG/DL (7-18); CALCIUM LEVEL 9.2 MG/DL (8.8-10.2); CARBON DIOXIDE LEVEL 33 MEQ/L (21-32); CHLORIDE LEVEL 103 MEQ/L (98-107); CHOLESTEROL LEVEL 186 MG/DL (<200); CHOLESTEROL RISK RATIO 2.657 (<5); CREATININE FOR GFR 0.98 MG/DL (0.70-1.30); GLOMERULAR FILTRATION RATE > 60.0 (>35); GLUCOSE, FASTING 133 MG/DL (70-100); HDL CHOLESTEROL 70 MG/DL (>40); LDL CHOLESTEROL 81 MG/DL (<100); MAGNESIUM LEVEL 1.9 MG/DL (1.8-2.4); NON-HDL-C 116 MG/DL; POTASSIUM SERUM 4.5 MEQ/L (3.5-5.1); SODIUM LEVEL 139 MEQ/L (136-145); TOTAL PROTEIN 7.3 GM/DL (6.4-8.2); TRIGLYCERIDES LEVEL 174 MG/DL (<150)
[2020-07-09 14:33] LABS: HEMOGLOBIN A1c 6.4 %
== END ==
LOC: M PLALAB 10:45
PROVIDERS: ATTEND Internal Medicine
DX: Z00.00 Encounter for general adult medical examination without abnormal findings (principal); D64.9 Anemia, unspecified; I10 Essential (primary) hypertension; R73.01 Impaired fasting glucose; E78.00 Pure hypercholesterolemia, unspecified; Z11.59 Encounter for screening for other viral diseases
CPT/HCPCS: 36415; 80053; 80061; 83036; 83735; 85025; 87521; G0472

== ENCOUNTER → 2021-01-08 | Outpatient (CLI) | payer MEDICARE ==
[~2021-01-08] MED LIST changes: -CYMB60CA3 PO; +CYMB60CA4 PO
[2021-01-08 13:09] LABS: BASO # 0.1 10^3/uL (0.0-0.2); BASO % 0.8 % (0.0-1.0); EOS # 0.3 10^3/uL (0.0-0.5); EOS % 3.7 % (0.0-3.0); HEMOGLOBIN 13.3 g/dl (13.5-17.5); LYMPH # 2.1 10^3/uL (1.5-5.0); MEAN CORPUSCULAR HEMOGLOBIN 29.2 pg (27.0-33.0); MEAN CORPUSCULAR HGB CONC 33.3 g/dl (32.0-36.5); MEAN CORPUSCULAR VOLUME 87.9 fl (80.0-96.0); MONO # 0.7 10^3/uL (0.0-0.8); MONO % 9.9 % (2.0-8.0); NEUTROPHILS # 3.9 10^3/uL (1.5-8.5); NEUTROPHILS % 55.3 % (36.0-66.0); PLATELET COUNT, AUTOMATED 246 10^3/uL (150-450); RED BLOOD COUNT 4.55 10^6/uL (4.30-6.10); WHITE BLOOD COUNT 7.1 10^3/uL (4.0-10.0)
[2021-01-08 14:58] LABS: MALB URINE SIEMENS 25.3 MG/L; MAU/CREAT RATIO 15.1 MCG/MG (0.0-30.0)
[2021-01-08 15:40] LABS: ALBUMIN 3.5 GM/DL (3.2-5.2); ALT/SGPT 26 U/L (12-78); BILIRUBIN,TOTAL 0.5 MG/DL (0.2-1.0); BLOOD UREA NITROGEN 14 MG/DL (7-18); CALCIUM LEVEL 9.1 MG/DL (8.8-10.2); CARBON DIOXIDE LEVEL 31 MEQ/L (21-32); CHLORIDE LEVEL 102 MEQ/L (98-107); CHOLESTEROL LEVEL 165 MG/DL (<200); CHOLESTEROL RISK RATIO 2.357 (<5); CREATININE FOR GFR 0.89 MG/DL (0.70-1.30); GLOMERULAR FILTRATION RATE > 60.0 (>35); GLUCOSE, FASTING 107 MG/DL (70-100); HDL CHOLESTEROL 70 MG/DL (>40); LDL CHOLESTEROL 72 MG/DL (<100); MAGNESIUM LEVEL 1.9 MG/DL (1.8-2.4); NON-HDL-C 95 MG/DL; POTASSIUM SERUM 4.1 MEQ/L (3.5-5.1); SODIUM LEVEL 139 MEQ/L (136-145); TOTAL PROTEIN 7.1 GM/DL (6.4-8.2); TRIGLYCERIDES LEVEL 117 MG/DL (<150)
[2021-01-08 16:40] LABS: HEMOGLOBIN A1c 6.5 %
== END ==
LOC: M PLALAB 10:09
PROVIDERS: ATTEND Internal Medicine
DX: Z86.711 Personal history of pulmonary embolism (principal); E07.9 Disorder of thyroid, unspecified; E78.00 Pure hypercholesterolemia, unspecified

== ENCOUNTER → 2021-07-10 | Outpatient (CLI) | payer MEDICARE ==
[2021-07-10 15:18] LABS: BASO # 0.1 10^3/uL (0.0-0.2); BASO % 0.7 % (0.0-1.0); EOS # 0.2 10^3/uL (0.0-0.5); EOS % 2.8 % (0.0-3.0); HEMATOCRIT 40.6 % (42.0-52.0); HEMOGLOBIN 13.6 g/dl (13.5-17.5); LYMPH # 2.2 10^3/uL (1.5-5.0); LYMPH % 26.4 % (24.0-44.0); MEAN CORPUSCULAR HEMOGLOBIN 29.2 pg (27.0-33.0); MEAN CORPUSCULAR HGB CONC 33.5 g/dl (32.0-36.5); MEAN CORPUSCULAR VOLUME 87.3 fl (80.0-96.0); MONO # 0.8 10^3/uL (0.0-0.8); NEUTROPHILS # 5.2 10^3/uL (1.5-8.5); NEUTROPHILS % 60.9 % (36.0-66.0); PLATELET COUNT, AUTOMATED 280 10^3/uL (150-450); RED BLOOD COUNT 4.65 10^6/uL (4.30-6.10); WHITE BLOOD COUNT 8.5 10^3/uL (4.0-10.0)
[2021-07-10 15:44] LABS: HEMOGLOBIN A1c 6.6 %
[2021-07-10 15:57] LABS: ALBUMIN 3.9 GM/DL (3.2-5.2); ALT/SGPT 34 U/L (12-78); BILIRUBIN,TOTAL 0.5 MG/DL (0.2-1.0); BLOOD UREA NITROGEN 15 MG/DL (7-18); CARBON DIOXIDE LEVEL 33 MEQ/L (21-32); CHLORIDE LEVEL 101 MEQ/L (98-107); CREATININE FOR GFR 1.02 MG/DL (0.70-1.30); GLOMERULAR FILTRATION RATE > 60.0 (>35); GLUCOSE, FASTING 96 MG/DL (70-100); MAGNESIUM LEVEL 2.1 MG/DL (1.8-2.4); POTASSIUM SERUM 4.1 MEQ/L (3.5-5.1); SODIUM LEVEL 138 MEQ/L (136-145); TOTAL PROTEIN 7.3 GM/DL (6.4-8.2)
== END ==
LOC: M PLALAB 12:01
PROVIDERS: ATTEND Internal Medicine
DX: R73.01 Impaired fasting glucose (principal); I10 Essential (primary) hypertension; E03.9 Hypothyroidism, unspecified; D64.9 Anemia, unspecified

== ENCOUNTER → 2022-01-07 | Outpatient (CLI) | payer MEDICARE ==
[2022-01-07 13:26] LABS: HEMATOCRIT 39.6 % (42.0-52.0); HEMOGLOBIN 13.2 g/dl (13.5-17.5); MEAN CORPUSCULAR HEMOGLOBIN 29.6 pg (27.0-33.0); MEAN CORPUSCULAR HGB CONC 33.3 g/dl (32.0-36.5); MEAN CORPUSCULAR VOLUME 88.8 fl (80.0-96.0); PLATELET COUNT, AUTOMATED 245 10^3/uL (150-450); RED BLOOD COUNT 4.46 10^6/uL (4.30-6.10); WHITE BLOOD COUNT 6.6 10^3/uL (4.0-10.0)
[2022-01-07 14:30] LABS: ALBUMIN 3.8 GM/DL (3.2-5.2); ALT/SGPT 22 U/L (12-78); BILIRUBIN,TOTAL 0.5 MG/DL (0.2-1.0); BLOOD UREA NITROGEN 14 MG/DL (7-18); CALCIUM LEVEL 9.2 MG/DL (8.8-10.2); CARBON DIOXIDE LEVEL 28 MEQ/L (21-32); CHLORIDE LEVEL 101 MEQ/L (98-107); CHOLESTEROL LEVEL 179 MG/DL (<200); CHOLESTEROL RISK RATIO 2.557 (<5); CREATININE FOR GFR 0.93 MG/DL (0.70-1.30); FERRITIN 42 NG/ML (26-388); GLOMERULAR FILTRATION RATE > 60.0 (>35); GLUCOSE, FASTING 94 MG/DL (70-100); HDL CHOLESTEROL 70 MG/DL (>40); IRON (FE) 82 UG/DL (65-175); LDL CHOLESTEROL 74 MG/DL (<100); NON-HDL-C 109 MG/DL; PERCENT SATURATION 24.1 % (19.7-50.0); POTASSIUM SERUM 3.9 MEQ/L (3.5-5.1); SODIUM LEVEL 135 MEQ/L (136-145); TOTAL IRON BINDING CAPACITY 340 UG/DL (250-450); TOTAL PROTEIN 7.1 GM/DL (6.4-8.2); TRIGLYCERIDES LEVEL 174 MG/DL (<150)
[2022-01-07 15:48] LABS: VITAMIN B12 LEVEL 269 PG/ML
== END ==
LOC: M PLALAB 11:40
PROVIDERS: ATTEND Nurse Practitioner Adult Health
DX: D64.9 Anemia, unspecified (principal); I10 Essential (primary) hypertension; E78.00 Pure hypercholesterolemia, unspecified; E03.9 Hypothyroidism, unspecified

== ENCOUNTER → 2022-09-18 | Outpatient (REF) | payer MEDICARE | LOC: M SFHCPLAZ 11:59 | PROVIDERS: ATTEND Nurse Practitioner Adult Health | DX: Z79.01 Long term (current) use of anticoagulants (principal) ==

== ENCOUNTER → 2022-11-17 | Outpatient (CLI) | payer MEDICARE ==
[2022-11-17 18:10] LABS: INR 3.47; PROTHROMBIN TIME 35.4 SECONDS (12.5-14.5)
== END ==
LOC: M PLALAB 15:20
PROVIDERS: ATTEND Nurse Practitioner Adult Health
DX: Z79.01 Long term (current) use of anticoagulants (principal); Z86.711 Personal history of pulmonary embolism

== ENCOUNTER → 2022-12-15 | Outpatient (CLI) | payer MEDICARE ==
[2022-12-15 14:13] LABS: HEMATOCRIT 40.4 % (42.0-52.0); HEMOGLOBIN 13.1 g/dl (13.5-17.5); MEAN CORPUSCULAR HEMOGLOBIN 29.5 pg (27.0-33.0); MEAN CORPUSCULAR HGB CONC 32.4 g/dl (32.0-36.5); PLATELET COUNT, AUTOMATED 267 10^3/uL (150-450); RED BLOOD COUNT 4.44 10^6/uL (4.30-6.10); WHITE BLOOD COUNT 6.7 10^3/uL (4.0-10.0)
[2022-12-15 14:18] LABS: ALBUMIN 3.8 G/DL (3.2-5.2); ALKALINE PHOSPHATASE 84 U/L (46-116); ALT/SGPT 19 U/L (7.0-40); AST/SGOT 17 U/L (<34); BILIRUBIN,TOTAL 0.5 MG/DL (0.3-1.2); BLOOD UREA NITROGEN 14 MG/DL (9-23); CALCIUM LEVEL 9.4 MG/DL (8.3-10.6); CARBON DIOXIDE LEVEL 31 MMOL/L (20-31); CHLORIDE LEVEL 104 MMOL/L (98-107); CHOLESTEROL LEVEL 167 MG/DL (<200); CHOLESTEROL RISK RATIO 2.98 (<5); CREATININE FOR GFR 0.83 MG/DL (0.70-1.30); FERRITIN 43.8 NG/ML (10.5-307.3); GLOMERULAR FILTRATION RATE > 60.0 (>35); GLUCOSE, FASTING 100 MG/DL (74-106); HDL CHOLESTEROL 55.9 MG/DL (>40); IRON (FE) 81 UG/DL (65-175); LDL CHOLESTEROL 73.7 MG/DL (<100); NON-HDL-C 111.1 MG/DL; PERCENT SATURATION 23.5 % (19.7-50.0); POTASSIUM SERUM 4.4 MMOL/L (3.5-5.1); SODIUM LEVEL 140 MMOL/L (136-145); THYROID STIMULATING HORMONE 1.541 uIU/ML (0.55-4.78); TOTAL IRON BINDING CAPACITY 344 UG/DL (250-425); TOTAL PROTEIN 6.8 G/DL (5.7-8.2); TRIGLYCERIDES LEVEL 187 MG/DL (<150)
[2022-12-15 14:20] LABS: VITAMIN B12 LEVEL 258 PG/ML (211-911)
[2022-12-15 14:21] LABS: FOLATE 6.6 NG/ML (>5.4)
== END ==
LOC: M PLALAB 09:11
PROVIDERS: ATTEND Nurse Practitioner Adult Health
DX: D64.9 Anemia, unspecified (principal); I10 Essential (primary) hypertension; E03.9 Hypothyroidism, unspecified; E78.00 Pure hypercholesterolemia, unspecified

== ENCOUNTER → 2023-11-20 | Outpatient (CLI) | payer MEDICARE ==
[2023-11-20 13:12] LABS: INR 2.42; PROTHROMBIN TIME 25.4 SECONDS (12.5-14.5)
== END ==
LOC: M PLALAB 10:32
PROVIDERS: ATTEND Nurse Practitioner Adult Health
DX: Z79.01 Long term (current) use of anticoagulants (principal); Z86.711 Personal history of pulmonary embolism

== ENCOUNTER → 2024-05-16 | Outpatient (CLI) | payer MEDICARE ==
[2024-05-16 12:42] LABS: HEMATOCRIT 41.8 % (42.0-52.0); HEMOGLOBIN 13.5 g/dl (13.5-17.5); MEAN CORPUSCULAR HEMOGLOBIN 29.3 pg (27.0-33.0); MEAN CORPUSCULAR HGB CONC 32.3 g/dl (32.0-36.5); MEAN CORPUSCULAR VOLUME 90.9 fl (80.0-96.0); PLATELET COUNT, AUTOMATED 271 10^3/uL (150-450); WHITE BLOOD COUNT 6.6 10^3/uL (4.0-10.0)
[2024-05-16 12:52] LABS: INR 1.97; PROTHROMBIN TIME 22.5 SECONDS (12.5-14.5)
[2024-05-16 13:16] LABS: TOTAL IRON BINDING CAPACITY 353 UG/DL (250-425)
[2024-05-16 13:17] LABS: ALBUMIN 3.6 G/DL (3.2-5.2); ALKALINE PHOSPHATASE 104 U/L (40-129); ALT/SGPT 29 U/L (7.0-40); AST/SGOT 22 U/L (<34); BILIRUBIN,TOTAL 0.5 MG/DL (0.3-1.2); BLOOD UREA NITROGEN 15 MG/DL (9-23); CALCIUM LEVEL 9.1 MG/DL (8.3-10.6); CARBON DIOXIDE LEVEL 31 MMOL/L (20-31); CHLORIDE LEVEL 103 MMOL/L (98-107); CHOLESTEROL LEVEL 182 MG/DL (<200); CHOLESTEROL RISK RATIO 2.74 (<5); GLOMERULAR FILTRATION RATE > 60.0 (>35); GLUCOSE, FASTING 120 MG/DL (74-106); HDL CHOLESTEROL 66.4 MG/DL (>40); IRON (FE) 93 UG/DL (65-175); LDL CHOLESTEROL 81.8 MG/DL (<100); NON-HDL-C 115.6 MG/DL; PERCENT SATURATION 26.3 % (19.7-50.0); POTASSIUM SERUM 4.2 MMOL/L (3.5-5.1); SODIUM LEVEL 143 MMOL/L (136-145); THYROID STIMULATING HORMONE 0.298 uIU/ML (0.55-4.78); TOTAL PROTEIN 6.9 G/DL (5.7-8.2); TRIGLYCERIDES LEVEL 169 MG/DL (<150)
[2024-05-16 13:18] LABS: FERRITIN 42.2 NG/ML (10.5-307.3)
== END ==
LOC: M PLALAB 09:13
PROVIDERS: ATTEND Nurse Practitioner Adult Health
DX: D64.9 Anemia, unspecified (principal); I10 Essential (primary) hypertension; E78.00 Pure hypercholesterolemia, unspecified; E03.9 Hypothyroidism, unspecified; Z79.01 Long term (current) use of anticoagulants; Z86.711 Personal history of pulmonary embolism

== ENCOUNTER → 2024-07-08 | Outpatient (CLI) | payer MEDICARE ==
[2024-07-08 15:11] LABS: INR 3.51
== END ==
LOC: M PLALAB 14:15
PROVIDERS: ATTEND Nurse Practitioner Adult Health
DX: Z79.01 Long term (current) use of anticoagulants (principal); Z86.711 Personal history of pulmonary embolism

== ENCOUNTER → 2025-01-23 | Outpatient (CLI) | payer MEDICARE ==
[~2025-01-23] MED LIST changes: -AMBI10TA PO; +ZOLP-533 PO
[2025-01-23 15:12] LABS: INR 1.88
[2025-01-23 15:13] LABS: PLATELET COUNT, AUTOMATED 282 10^3/uL (150-450)
[2025-01-23 15:20] LABS: ALT/SGPT 27.0 U/L (7.0-40); AST/SGOT 28.0 U/L (<34); CALCIUM LEVEL 8.5 MG/DL (8.3-10.6); CARBON DIOXIDE LEVEL 30.0 MMOL/L (20-31); CHLORIDE LEVEL 99.0 MMOL/L (98-107); CHOLESTEROL LEVEL 197.0 MG/DL (<200); CHOLESTEROL RISK RATIO 3.03 (<5); CREATININE FOR GFR 0.82 MG/DL (0.70-1.30); FREE T4 1.38 NG/DL (0.89-1.76); GLOMERULAR FILTRATION RATE 85.0 (>35); LDL CHOLESTEROL 102.0 MG/DL (<100); NON-HDL-C 132.0 MG/DL; POTASSIUM SERUM 4.1 MMOL/L (3.5-5.1); SODIUM LEVEL 137.0 MMOL/L (136-145); TRIGLYCERIDES LEVEL 150.0 MG/DL (<150); VITAMIN B12 LEVEL 300.0 PG/ML (211-911)
[2025-01-23 15:42] LABS: ESTIMATED AVERAGE GLUCOSE 137.0 MG/DL (60-110)
== END ==
LOC: M PLALAB 10:55
PROVIDERS: ATTEND Nurse Practitioner Adult Health
DX: D64.9 Anemia, unspecified (principal); Z86.711 Personal history of pulmonary embolism; I10 Essential (primary) hypertension; R73.01 Impaired fasting glucose; E03.9 Hypothyroidism, unspecified; E78.00 Pure hypercholesterolemia, unspecified